=== PATIENT | female | born 1945 | race Hispanic/Latino ===

== ENCOUNTER → 2023-10-22 | Emergency (ER) | payer OTHER, BC ==
--- NOTE | 2023-10-22 11:25 | ER ---
Nurse's Notes [facility] Name: Olivia Curtis Age: 78 yrs Sex: Female : 1945 Arrival Date: 10/22/2023 Time: 10:23 Bed 4 Private MD: Diagnosis: Essential (primary) hypertension;Raynaud's syndrome without gangrene Presentation: 10/22 10:44 Chief complaint: Home DBP 89, left index finger turning white, and mild numbness of hb lips since iron infusion completed yesterday. Coronavirus screen: At this time, the client does not indicate any symptoms associated with coronavirus-19. Ebola Screen: No symptoms or risks identified at this time. Initial Sepsis Screen: Does the patient meet any 2 criteria? No. Patient's initial sepsis screen is negative. Does the patient have a suspected source of infection? No. Patient's initial sepsis screen is negative. Risk Assessment: Do you want to hurt yourself or someone else? Patient reports no desire to harm self or others. Onset of symptoms was October 21, 2023. 10:44 Method Of Arrival: Ambulatory hb 10:44 Acuity: BRYNN 3 hb Historical: - Allergies: 10:45 No Known Allergies; hb - Home Meds: 10:45 BuSpar Oral 10 mg [Active]; eszopiclone 1 mg oral tablet [Active]; duloxetine 60 mg hb oral capsule,delayed release (e.c.) [Active]; valsartan 320 mg oral tablet [Active]; aspirin 81 mg oral tablet,chewable [Active]; biotin 10,000 mcg oral capsule [Active]; Centrum oral [Active]; - PMHx: 10:45 Hypertension; Anxiety; Anemia; hb Screenin:50 [facility] ED Fall Risk Assessment (Adult) History of falling in the last 3 months, aa5 including since admission No falls in past 3 months (0 pts) Confusion or Disorientation No (0 pts) Intoxicated or Sedated No (0 pts) Impaired Gait No (0 pts) Mobility Assist Device Used No (0 pt) Altered Elimination No (0 pt) Score/Fall Risk Level 0 - 2 = Low Risk Oriented to surroundings, Maintained a safe environment, Educated pt \T\ family on fall prevention, incl call for assistance when getting out of bed. Abuse screen: Denies threats or abuse. Nutritional screening: No deficits noted. Tuberculosis screening: No symptoms or risk factors identified. Assessment: 10:50 General: Appears comfortable, Behavior is calm, cooperative. Pain: Denies pain. Neuro: aa5 Level of Consciousness is awake, alert, obeys commands, Oriented to person, place, time, situation. Cardiovascular: Heart tones S1 S2 present Rhythm is regular. Respiratory: Airway is patent Respiratory effort is even, unlabored, Respiratory pattern is regular, symmetrical. GI: No signs and/or symptoms were reported involving the gastrointestinal system. : No signs and/or symptoms were reported regarding the genitourinary system. EENT: No signs and/or symptoms were reported regarding the EENT system. Derm: Skin is pink, warm \T\ dry. reports left index finger turning white out in the cold weather. Musculoskeletal: Range of motion: intact in all extremities. 11:42 Reassessment: Patient is alert, oriented x 3, equal unlabored respirations, skin aa5 warm/dry/pink. Vital Signs: 10:44 BP 172 / 74; Pulse 72; Resp 16; Temp 97.7(TE); Pulse Ox 100% on R/A; Pain 0/10; hb 11:16 BP 159 / 65; Pulse 62; Resp 18 S; Pulse Ox 100% on R/A; aa5 11:40 BP 158 / 71; Pulse 67; Resp 17 S; Pulse Ox 99% on R/A; aa5 10:44 Pain Scale: Adult hb ED Course: 10:27 Patient arrived in ED. mg5 10:29 Keya Baker PA-C is PHCP. sb4 10:29 Eric Spear MD is Attending Physician. sb4 10:45 Triage completed. hb 10:53 Leta Sosa, SHALOM is Primary Nurse. aa5 11:40 No provider procedures requiring assistance completed. Patient did not have IV access aa5 during this emergency room visit. 11:50 Patient has correct armband on for positive identification. Bed in low position. Call aa5 light in reach. Side rails up X 1. Pulse ox on. NIBP on. Administered Medications: No medications were administered Medication: 11:20 VIS not applicable for this client. aa5 Outcome: 11:25 Discharge ordered by . sb4 11:42 Discharged to home ambulatory, with family, aa5 11:42 Condition: stable 11:42 Discharge instructions given to patient, Instructed on discharge instructions, follow up and referral plans. Demonstrated understanding of instructions, follow-up care, Pt instructed to keep blood pressure reading log and to follow-up with PCP. 11:43 Patient left the ED. aa5 Signatures: Leta Sosa RN RN aa5 Temla Esquivel RN RN hb Brown, Sophia, PADat PADat sb4 Hellen Pearson mg5
--- NOTE | 2023-10-22 11:25 | EDPHYS ---
Physician Documentation [facility] Name: Olivia Curtis Age: 78 yrs Sex: Female : 1945 Arrival Date: 10/22/2023 Time: 10:23 Bed 4 Private MD: ED Physician Eric Spear HPI: 10/22 11:29 This 78 yrs old Female presents to ER via Ambulatory with complaints of High sb4 Blood Pressure. 11:32 78-year-old female with past medical history of anxiety, hypertension, and anemia sb4 presents with concerns of elevated blood pressure, numbness in her lips, and discoloration of her index finger. She states that she had an iron infusion yesterday for her chronic anemia. Additionally, she states that she was started on 2 new medications for anxiety/insomnia. States that she checked her blood pressure this morning and her diastolic was 89, which is high for her and wanted to make sure all of these things were not related. She denies any chest pain, shortness of breath, nausea, vomiting, blurry vision, gait abnormality, weakness, aphasia. Historical: - Allergies: 10:45 No Known Allergies; hb - Home Meds: 10:45 BuSpar Oral 10 mg [Active]; eszopiclone 1 mg oral tablet [Active]; duloxetine 60 mg hb oral capsule,delayed release (e.c.) [Active]; valsartan 320 mg oral tablet [Active]; aspirin 81 mg oral tablet,chewable [Active]; biotin 10,000 mcg oral capsule [Active]; Centrum oral [Active]; - PMHx: 10:45 Hypertension; Anxiety; Anemia; hb ROS: 11:32 Constitutional: Negative for fever, chills, and weight loss, sb4 11:32 MS/extremity: Positive for 11:32 Skin: Positive for discoloration, 11:32 Neuro: Positive for numbness, 11:32 All other systems are negative, Exam: 11:32 Constitutional: This is a well developed, well nourished patient who is awake, alert, sb4 and in no acute distress. Head/Face: Normocephalic, atraumatic. Eyes: Extra-ocular motions intact. Periorbital areas with no swelling, redness, or edema. ENT: Mucous membranes moist. Cardiovascular: Regular rate and rhythm with a normal S1 and S2. Respiratory: Lungs have equal breath sounds bilaterally, clear to auscultation and percussion. No rales, rhonchi or wheezes noted. No increased work of breathing, no retractions or nasal flaring. Abdomen/GI: Soft, non-tender, no distension. MS/ Extremity: Pulses equal, no cyanosis. Neurovascular intact. Full, normal range of motion. Neuro: Awake and alert, GCS 15, oriented to person, place, time, and situation. Motor strength 5/5 in all extremities. Sensory grossly intact. 11:32 Skin: distal left index finger with raynaud's appearance . Vital Signs: 10:44 BP 172 / 74; Pulse 72; Resp 16; Temp 97.7(TE); Pulse Ox 100% on R/A; Pain 0/10; hb 11:16 BP 159 / 65; Pulse 62; Resp 18 S; Pulse Ox 100% on R/A; aa5 11:40 BP 158 / 71; Pulse 67; Resp 17 S; Pulse Ox 99% on R/A; aa5 10:44 Pain Scale: Adult hb MDM: 10:34 Patient medically screened. sb4 11:32 Differential diagnosis: hypertension, anxiety, raynauds. Data reviewed: vital signs, sb4 nurses notes, and as a result, I will discharge patient. Test considered but Not performed: EKG: patient declined. Labs: patient declined, has had blood work recently that was normal. CT: patient declined. Historians other than the Patient: Family Member: granddaughter. Care significantly affected by the following chronic conditions: Hypertension. Counseling: I had a detailed discussion with the patient and/or guardian regarding the historical points, exam findings, and any diagnostic results supporting the discharge/admit diagnosis, the presence of at least one elevated blood pressure reading (>120/80) during this emergency department visit, the need for outpatient follow up, for definitive care, to adjust BP medications. Refusal of service: The patient/guardian displays adequate decision making capability and despite a detailed discussion of alternatives, benefits, risks, and consequences refuses: all lab tests. ED course: BP improved with rest. discussed that BP is likely related to anxiety and she needs to see PCP to adjust medications. she is asymptomatic. recently had full negative cardiac workup. does not want any other workup done at this time. she is safe for dc home. strict return precautions given, she undertsands. Administered Medications: No medications were administered Disposition Summary: 10/22/23 11:25 Discharge Ordered Notes: Location: Home sb4 Problem: new sb4 Symptoms: have improved sb4 Condition: Stable sb4 Diagnosis - Essential (primary) hypertension sb4 - Raynaud's syndrome without gangrene sb4 Followup: sb4 - With: Emergency Department - When: As needed - Reason: Trouble breathing, Worsening of condition Discharge Instructions: - Discharge Summary Sheet sb4 - Hypertension, Adult sb4 - Raynaud's Phenomenon sb4 Forms: - Medication Reconciliation Form sb4 - Thank You Letter sb4 - Antibiotic Education sb4 - Prescription Opioid Use sb4 - Patient Portal Instructions sb4 - Leadership Thank You Letter sb4 Addendum: 10/24/2023 15:32 I was immediately available for consultation during this patient's visit. I did not e c2 personally see the patient or discuss the patient with the GRACIA. . Signatures: Telma Esquivel RN RN hb Brown, Sophia, PA-C PA-C sb4 Eric Spear MD MD ec2
[2023-10-22 14:28] VITALS: TEMP 97.7
[2023-10-22 14:42] VITALS: BP 158/71; O2SAT 99
== END ==
LOC: ER 10:23
DX: I10 Essential (primary) hypertension (principal); I73.00 Raynaud's syndrome without gangrene; R20.0 Anesthesia of skin; D64.9 Anemia, unspecified
CPT/HCPCS: 99283

== ENCOUNTER → 2023-12-07 | Emergency (ER) | payer OTHER, BC ==
[~2023-12-07] MED LIST: NA CHLORIDE 0.9% 1,000 ML ONE
[2023-12-07 20:47] LABS: Absolute Basophils 0.1 K/uL (0-0.5); Absolute Eosinophils 0.1 K/uL (0-0.5); Absolute Lymphocytes (CBC) 2.4 K/uL (0.7-4.9); Basophils % 0.5 % (0-1.3); Eosinophils % 0.8 % (0-4.4); Hematocrit 38.3 % (36.0-45.0); Lymphocytes % 24.9 % (15.3-44.8); MCV 82.3 fL (80-100); MPV 7.3 fL (7.6-11.3); Platelets 374 thou/uL (152-406); RBC Red Blood Cell Count 4.65 M/uL (3.86-4.86)
[2023-12-07 20:54] LABS: Specific Gravity 1.009 (1.005-1.030); Urine Bacteria <20 /HPF (<20); Urine Bilirubin NEGATIVE (Negative); Urine Blood Negative (Negative); Urine Clarity Turbid (Clear); Urine Color Light-Yellow (Yellow); Urine Glucose NEGATIVE (Negative); Urine Mucus Slight /HPF (None Seen); Urine Protein NEGATIVE (Negative); Urine RBC <5 /HPF (None Seen); Urine Urobilinogen Normal (Normal)
[2023-12-07 21:15] LABS: Albumin 2.5 g/dL (3.4-5.0); Albumin/Globulin Ratio 0.7 (1.1-1.8); Anion Gap 7.9 mEq/L (5.0-15.0); Bilirubin Total 0.5 mg/dL (0.2-1.0); Globulin 3.5 g/dL (2.3-3.5)
[2023-12-07 21:16] LABS: Anisocytosis 2+; Blood Morphology Comment NOTED (NOT SEEN); Platelet Estimate ADEQ; White Blood Cell Scan OK (OK)
[2023-12-07 21:21] LABS: Potassium 3.9 mEq/L (3.5-5.1)
--- NOTE | 2023-12-07 22:05 | RAD REPORT ---
EXAM DESCRIPTION: CT - Abdomen Pelvis W Contrast - 12/07/2023 9:49 pm CLINICAL HISTORY: Abdominal pain COMPARISON: none. TECHNIQUE: Computed axial tomography of the abdomen pelvis was obtained. 100 cc Isovue-300 was admin istered intravenously. Oral contrast was not requested which limits evaluation of bowel and appendix All CT scans are performed using dose optimization technique as appropriate and may include automated exposure control or mA/KV adjustment according to patient size. FINDINGS: Hepatic cysts. The largest contains a septation measuring 3.3 centimeters. Spleen, pancreas, and adrenals appear unremarkable. Tiny renal cysts There is no evidence of diverticulitis. Fluid within nondilated bowel. Hysterectomy Atherosclerosis. Calcification abdominal aorta results in an approximately 50% stenosis IMPRESSION: Fluid within nondilated bowel may indicate an enteritis Calcification abdominal aorta results in an approximately 50% stenosis
--- NOTE | 2023-12-07 22:11 | EDPHYS ---
Physician Documentation [facility] Name: Olivia Curtis Age: 78 yrs Sex: Female : 1945 Arrival Date: 12/07/2023 Time: 18:01 Bed 15 Private MD: ED Physician Chip De León HPI: 12/06 18:37 This 78 yrs old Female presents to ER via Unassigned with complaints of kb Weakness. 18:37 Pt reports she has celiac disease and has had diarrhea for 1.5 weeks. States she has no kb appetite and feels weak because of all of the diarrhea. States she has seen her GI and had stool tests completed but does not have the results yet. Denies fever, n/v. States she has mild abd discomfort. Historical: - Allergies: 18:40 No Known Allergies; tl4 - PMHx: 18:40 Anemia; Anxiety; Hypertension; tl4 - Immunization history:: Adult Immunizations unknown. - Social history:: Smoking status: Patient denies any tobacco usage or history of. ROS: 18:37 Constitutional: As per HPI kb Exam: 18:37 Constitutional: This is a well developed, well nourished patient who is awake, alert, kb and in no acute distress. Head/Face: Normocephalic, atraumatic. ENT: Moist Mucous membranes Cardiovascular: Regular rate Respiratory: Respirations even and unlabored. No increased work of breathing. Talking in full sentences Skin: Warm, dry with normal turgor. Normal color. MS/ Extremity: Pulses equal, no cyanosis. Neurovascular intact. Full, normal range of motion. Neuro: Awake and alert, GCS 15, oriented to person, place, time, and situation. Moves all extremities. Normal gait. 18:37 Abdomen/GI: Inspection: abdomen appears normal, Bowel sounds: normal, Palpation: soft, in all quadrants, mild abdominal tenderness, in all quadrants, Vital Signs: 18:36 BP 103 / 53; Pulse 102; Resp 18; Temp 98(O); Pulse Ox 100% on R/A; Weight 54.43 kg; tl4 Height 5 ft. 2 in. ; Pain 5/10; 20:00 BP 101 / 57; Pulse 80; Resp 16; Pulse Ox 100% ; Pain 0/10; pf1 21:00 BP 114 / 55; Pulse 76; Resp 16; Pulse Ox 100% ; Pain 0/10; pf1 22:00 BP 119 / 57; Pulse 79; Resp 16; Temp 98.1; Pulse Ox 98% on R/A; Pain 0/10; pf1 18:36 Body Mass Index 21.95 (54.43 kg, 157.48 cm) tl4 18:36 Pain Scale: Adult tl4 20:00 Pain Scale: Adult pf1 21:00 Pain Scale: Adult pf1 22:00 Pain Scale: Adult pf1 NIH Stroke Scale Scores: 19:53 NIHSS Score: 0 pf1 MDM: 18:36 Patient medically screened. kb 18:39 Data reviewed: vital signs, nurses notes. kb 22:09 Differential diagnosis: Nonspecific abd pain, gastritis, viral gastroenteritis, kb dehydration, abnormal electrolytes. Counseling: I had a detailed discussion with the patient and/or guardian regarding the historical points, exam findings, and any diagnostic results supporting the discharge/admit diagnosis, lab results, radiology results, the need for outpatient follow up, a family practitioner, to return to the emergency department if symptoms worsen or persist or if there are any questions or concerns that arise at home. 03 18:36 Order name: CBC with Diff; Complete Time: 21:20 kb 12/06 18:36 Order name: CMP; Complete Time: 21:28 kb 12/06 18:36 Order name: Lipase; Complete Time: 21:28 kb 12/06 18:36 Order name: Urinalysis w/ reflexes; Complete Time: 21:20 kb 12/06 21:16 Order name: CBC Smear Scan; Complete Time: 21:20 EDMS 12/06 18:36 Order name: CT Abd/Pelvis - IV Contrast Only; Complete Time: 22:09 kb 12/06 18:36 Order name: IV Saline Lock; Complete Time: 20:17 kb 12/06 18:36 Order name: Labs collected and sent; Complete Time: 20:17 kb Administered Medications: 20:30 Drug: NS 0.9% IV 1000 ml IV at 1 bolus Per protocol; 1000 mL bolus Route: IV; Rate: 1 pf1 bolus; Site: left antecubital; 21:00 Follow up: Response: Marked relief of symptoms; IV Status: Completed infusion; IV pf1 Intake: 1000ml Disposition Summary: 12/07/23 22:10 Discharge Ordered Notes: Location: Home kb Condition: Stable kb Diagnosis - Diarrhea, unspecified kb - Weakness kb Followup: kb - With: Emergency Department - When: As needed - Reason: Worsening of condition Followup: kb - With: Private Physician - When: 2 - 3 days - Reason: Recheck today's complaints, Continuance of care, Re-evaluation by your physician Discharge Instructions: - Discharge Summary Sheet kb - Diarrhea, Adult, [id number] kb - Weakness, [id number] kb Forms: - Medication Reconciliation Form kb - Thank You Letter kb - Antibiotic Education kb - Prescription Opioid Use kb - Patient Portal Instructions kb - Leadership Thank You Letter kb NIH Stroke Scale - NIH Stroke Score Date: 12/07/2023 Time: 19:53 Total Score = 0 10. Dysarthria (speech clarity - read or repeat words) 11. Extinction and Inattention (visual/tactile/auditory/spatial/personal) 1a. Level of Consciousness (LOC) - 0(Alert) 1b. Level of Consciousness (LOC) (Month \T\ Age) - 0(Both) 1c. LOC Commands (Open \T\ Closes Eyes/Three Dimensional Art Instructor) - 0(Both) 2. Best Gaze (Lateral Gaze Paresis) - 0(Normal) 3. Visual Field Loss - 0(No visual loss) 4. Facial Palsy - 0(Normal) 5a. Left Arm: Motor (10-second hold) - 0(No drift) 5b. Right Arm: Motor (10-second hold) - 0(No drift) 6a. Left Leg: Motor (5-second hold - always test supine) - 0(No drift) 6b. Right Leg: Motor (5-second hold - always test supine) - 0(No drift) 7. Limb Ataxia (finger/nose \T\ heel/mcclure - test with eyes open) - 0(Absent) 8. Sensory Loss (pinprick arms/legs/face) - 0(Normal) 9. Best Language: Aphasia (description/naming/reading) Initials: pf1 Addendum: 12/12/2023 08:26 Co-signature as Attending Physician, Chip De León MD I reviewed the patient's rn care provided by the Advanced Practice Provider and agree with the diagnosis and treatment plan. Signatures: Dispatcher [employer] EDChelsea Prasad, COTTON OPENER-C COTTON OPENER-Ckb Chip De León MD MD rn Finley, Pamala, RN RN pf1 Bismark Hoff, RN RN tl4
--- NOTE | 2023-12-07 22:11 | ER ---
Nurse's Notes [facility] Name: Olivia Curtis Age: 78 yrs Sex: Female : 1945 Arrival Date: 12/07/2023 Time: 18:01 Bed 15 Private MD: Diagnosis: Diarrhea, unspecified;Weakness Presentation: 12/06 18:36 Chief complaint: Patient states: Pt c/o ongoing diarrhea and upper abdominal pain x 10 tl4 days. Coronavirus screen: At this time, the client does not indicate any symptoms associated with coronavirus-19. Ebola Screen: No symptoms or risks identified at this time. Initial Sepsis Screen: Does the patient meet any 2 criteria? No. Patient's initial sepsis screen is negative. Does the patient have a suspected source of infection? No. Patient's initial sepsis screen is negative. Risk Assessment: Do you want to hurt yourself or someone else? Patient reports no desire to harm self or others. Onset of symptoms was November 28, 2023. 18:36 Method Of Arrival: Ambulatory tl4 18:36 Acuity: BRYNN 3 tl4 19:52 No acute neurological deficit is noted. pf1 Triage Assessment: 18:40 General: Appears in no apparent distress. Behavior is calm, cooperative. Pain: tl4 Complains of pain in abdomen. EENT: No deficits noted. No signs and/or symptoms were reported regarding the EENT system. Neuro: Reports fatigue. Cardiovascular: No deficits noted. Respiratory: No deficits noted. GI: Reports diarrhea. : No deficits noted. No signs and/or symptoms were reported regarding the genitourinary system. Derm: No deficits noted. No signs and/or symptoms reported regarding the dermatologic system. Musculoskeletal: No deficits noted. No signs and/or symptoms reported regarding the musculoskeletal system. Historical: - Allergies: 18:40 No Known Allergies; tl4 - PMHx: 18:40 Anemia; Anxiety; Hypertension; tl4 - Immunization history:: Adult Immunizations unknown. - Social history:: Smoking status: Patient denies any tobacco usage or history of. Screenin:55 [facility] ED Fall Risk Assessment (Adult) History of falling in the last 3 months, pf1 including since admission No falls in past 3 months (0 pts) Confusion or Disorientation No (0 pts) Intoxicated or Sedated No (0 pts) Impaired Gait No (0 pts) Mobility Assist Device Used No (0 pt) Altered Elimination No (0 pt) Score/Fall Risk Level 0 - 2 = Low Risk Oriented to surroundings, Maintained a safe environment, Educated pt \T\ family on fall prevention, incl call for assistance when getting out of bed, Assessed \T\ reinforced patient's understanding of fall precautions, Provided non-skid footwear, Hourly rounding (assess needs \T\ fall precautionary measures) done, Used ambulatory aids as needed (educated on \T\ assisted with), Used gait belt as appropriate. Abuse screen: Denies threats or abuse. Nutritional screening: No deficits noted. Tuberculosis screening: No symptoms or risk factors identified. Assessment: 19:53 General: Appears in no apparent distress. comfortable, well groomed, well developed, pf1 Behavior is calm, cooperative, appropriate for age, quiet. Pain: Denies pain. Neuro: Level of Consciousness is awake, alert, obeys commands, Oriented to person, place, time, situation, Reports weakness in generalized. Cardiovascular: Capillary refill < 3 seconds Patient's skin is warm and dry. Respiratory: No deficits noted. Airway is patent Respiratory effort is even, unlabored, Respiratory pattern is regular, symmetrical, Breath sounds are clear bilaterally. GI: Abdomen is flat, non-distended, Bowel sounds present X 4 quads. Reports diarrhea. : No deficits noted. No signs and/or symptoms were reported regarding the genitourinary system. EENT: No deficits noted. No signs and/or symptoms were reported regarding the EENT system. Derm: No deficits noted. No signs and/or symptoms reported regarding the dermatologic system. Musculoskeletal: No deficits noted. Circulation, motion, and sensation intact. Capillary refill < 3 seconds. 20:30 Reassessment: Patient appears in no apparent distress at this time. Patient and/or pf1 family updated on plan of care and expected duration. Pain level reassessed. Patient is alert, oriented x 3, equal unlabored respirations, skin warm/dry/pink. Patient states symptoms have improved. 21:30 Reassessment: Patient appears in no apparent distress at this time. Patient and/or pf1 family updated on plan of care and expected duration. Pain level reassessed. Patient is alert, oriented x 3, equal unlabored respirations, skin warm/dry/pink. Patient states feeling better. Patient states symptoms have improved. Vital Signs: 18:36 BP 103 / 53; Pulse 102; Resp 18; Temp 98(O); Pulse Ox 100% on R/A; Weight 54.43 kg; tl4 Height 5 ft. 2 in. ; Pain 5/10; 20:00 BP 101 / 57; Pulse 80; Resp 16; Pulse Ox 100% ; Pain 0/10; pf1 21:00 BP 114 / 55; Pulse 76; Resp 16; Pulse Ox 100% ; Pain 0/10; pf1 22:00 BP 119 / 57; Pulse 79; Resp 16; Temp 98.1; Pulse Ox 98% on R/A; Pain 0/10; pf1 18:36 Body Mass Index 21.95 (54.43 kg, 157.48 cm) tl4 18:36 Pain Scale: Adult tl4 20:00 Pain Scale: Adult pf1 21:00 Pain Scale: Adult pf1 22:00 Pain Scale: Adult pf1 NIH Stroke Scale Scores: 19:53 NIHSS Score: 0 pf1 ED Course: 18:05 Patient arrived in ED. mg5 18:36 Chelsea Miguel FNP-C is PHCP. kb 18:36 Chip De León MD is Attending Physician. kb 18:40 Triage completed. tl4 18:42 Arm band placed on left wrist. tl4 19:55 Patient has correct armband on for positive identification. Placed in gown. Bed in low pf1 position. Call light in reach. Side rails up X 1. 20:00 Lights dimmed. Warm blanket given. pf1 20:17 CBC with Diff Sent. pf1 20:17 CMP Sent. pf1 20:30 No provider procedures requiring assistance completed. Inserted saline lock: 22 gauge pf1 in left antecubital area, using aseptic technique. Blood collected. 20:47 CBC with Diff Sent. pf1 20:47 CMP Sent. pf1 20:47 Lipase Sent. pf1 20:47 Urinalysis w/ reflexes Sent. pf1 21:51 CT Abd/Pelvis - IV Contrast Only In Process Unspecified. EDMS 22:19 IV discontinued, intact, bleeding controlled, No redness/swelling at site. Pressure pf1 dressing applied. 22:20 Provided Education on: follow up. pf1 Administered Medications: 20:30 Drug: NS 0.9% IV 1000 ml IV at 1 bolus Per protocol; 1000 mL bolus Route: IV; Rate: 1 pf1 bolus; Site: left antecubital; 21:00 Follow up: Response: Marked relief of symptoms; IV Status: Completed infusion; IV pf1 Intake: 1000ml Medication: 22:20 VIS not applicable for this client. pf1 Intake: 21:00 IV: 1000ml; Total: 1000ml. pf1 Outcome: 22:10 Discharge ordered by . kb 22:20 Discharged to home ambulatory, pf1 22:20 Condition: improved 22:20 Discharge instructions given to patient, Instructed on discharge instructions, follow up and referral plans. Demonstrated understanding of instructions, follow-up care, 22:22 Patient left the ED. pf1 NIH Stroke Scale - NIH Stroke Score Date: 12/07/2023 Time: 19:53 Total Score = 0 10. Dysarthria (speech clarity - read or repeat words) 11. Extinction and Inattention (visual/tactile/auditory/spatial/personal) 1a. Level of Consciousness (LOC) - 0(Alert) 1b. Level of Consciousness (LOC) (Month \T\ Age) - 0(Both) 1c. LOC Commands (Open \T\ Closes Eyes/Postal Superintendent) - 0(Both) 2. Best Gaze (Lateral Gaze Paresis) - 0(Normal) 3. Visual Field Loss - 0(No visual loss) 4. Facial Palsy - 0(Normal) 5a. Left Arm: Motor (10-second hold) - 0(No drift) 5b. Right Arm: Motor (10-second hold) - 0(No drift) 6a. Left Leg: Motor (5-second hold - always test supine) - 0(No drift) 6b. Right Leg: Motor (5-second hold - always test supine) - 0(No drift) 7. Limb Ataxia (finger/nose \T\ heel/mcclure - test with eyes open) - 0(Absent) 8. Sensory Loss (pinprick arms/legs/face) - 0(Normal) 9. Best Language: Aphasia (description/naming/reading) Initials: pf1 Signatures: Dispatcher [employer] EDMS Chelsea Miguel, SARA CULPP-Tanya Cerda RN RN pf1 Hellen Pearson 5 Bismark Hoff RN RN tl4 Corrections: (The following items were deleted from the chart) 22:19 22:00 BP 119 / 57; Pulse 79bpm; Resp 16bpm; Pulse Ox 98% RA; Pain 0/10, Adult; pf1 pf1
[2023-12-07 22:43] VITALS: BP 119/57; TEMP 98.1; O2SAT 98
== END ==
LOC: ER 18:01
DX: R19.7 Diarrhea, unspecified (principal); R53.1 Weakness; I10 Essential (primary) hypertension
CPT/HCPCS: 85025; 81001; 36415; 83690; 80053; 74177; Q9967; J7030; 99285

== ENCOUNTER → 2023-12-12 | Emergency (ER) | payer OTHER, BC ==
[~2023-12-12] MED LIST changes: +LOPERAMIDE HCL 2 MG CAPSULE ONE
[2023-12-12 20:40] LABS: Absolute Eosinophils 0.1 K/uL (0-0.5); Absolute Lymphocytes (CBC) 1.3 K/uL (0.7-4.9); Basophils % 0.3 % (0-1.3); Eosinophils % 0.4 % (0-4.4); Hematocrit 39.9 % (36.0-45.0); Hemoglobin 13.5 g/dL (12.0-15.0); Lymphocytes % 10.9 % (15.3-44.8); MCV 82.6 fL (80-100); MPV 7.2 fL (7.6-11.3); Platelets 391 thou/uL (152-406); RBC Red Blood Cell Count 4.83 M/uL (3.86-4.86)
[2023-12-12 21:04] LABS: Albumin 2.8 g/dL (3.4-5.0); Albumin/Globulin Ratio 0.8 (1.1-1.8); Anion Gap 7.5 mEq/L (5.0-15.0); Bilirubin Total 0.3 mg/dL (0.2-1.0); Globulin 3.6 g/dL (2.3-3.5); Potassium 3.5 mEq/L (3.5-5.1); Protein, Total 6.4 g/dL (6.4-8.2)
[2023-12-12 22:09] LABS: Anisocytosis 2+; Blood Morphology Comment NOTED (NOT SEEN); Burr Cells 3+; Platelet Estimate ADEQ; White Blood Cell Scan OK (OK)
--- NOTE | 2023-12-12 22:11 | ER ---
Nurse's Notes [facility] Name: Olivia Curtis Age: 78 yrs Sex: Female : 1945 Arrival Date: 12/12/2023 Time: 17:53 Bed 18 Private MD: Diagnosis: Diarrhea, unspecified Presentation: 12/11 18:23 Coronavirus screen: Vaccine status: Patient reports receiving the 2nd dose of the covid kd3 vaccine. Ebola Screen: No symptoms or risks identified at this time. Initial Sepsis Screen: Does the patient meet any 2 criteria? No. Patient's initial sepsis screen is negative. Does the patient have a suspected source of infection? No. Patient's initial sepsis screen is negative. Risk Assessment: Do you want to hurt yourself or someone else? Patient reports no desire to harm self or others. Onset of symptoms was December 12, 2023. 18:23 Method Of Arrival: Ambulatory kd3 18:24 Chief complaint: Patient states: I came in last Tuesday for diarrhea and since then i kd3 have still been having diarrhea. I did follow up with GI but i haven't gotten results back. They just gave me IV fluids last time i was here. 18:24 Acuity: BRYNN 3 kd3 Triage Assessment: 18:24 General: Appears in no apparent distress. Behavior is calm, cooperative. Pain: kd3 Complains of pain in abdomen. GI: Reports diarrhea. Historical: - Allergies: 18:24 No Known Allergies; kd3 - Home Meds: 18:26 valsartan 320 mg Oral tablet [Active]; eszopiclone 1 mg Oral tablet [Active]; kd3 duloxetine 60 mg Oral capsule [Active]; Centrum oral [Active]; BuSpar Oral 10 mg [Active]; biotin 10 Oral capsule [Active]; aspirin 81 mg Oral tablet [Active]; - PMHx: 18:26 Anemia; Anxiety; Hypertension; kd3 - Immunization history:: Adult Immunizations up to date. - Social history:: Smoking status: Patient denies any tobacco usage or history of. Screenin:36 [facility] ED Fall Risk Assessment (Adult) History of falling in the last 3 months, kd4 including since admission No falls in past 3 months (0 pts) Confusion or Disorientation No (0 pts) Intoxicated or Sedated No (0 pts) Impaired Gait No (0 pts) Mobility Assist Device Used No (0 pt) Altered Elimination No (0 pt) Score/Fall Risk Level 0 - 2 = Low Risk Oriented to surroundings, Maintained a safe environment, Educated pt \T\ family on fall prevention, incl call for assistance when getting out of bed, Assessed \T\ reinforced patient's understanding of fall precautions. Abuse screen: Denies threats or abuse. Denies injuries from another. Nutritional screening: No deficits noted. Tuberculosis screening: No symptoms or risk factors identified. Assessment: 20:36 General: Appears in no apparent distress. comfortable, Behavior is calm, cooperative, kd4 appropriate for age. Pain: Denies pain. Neuro: Level of Consciousness is awake, alert, obeys commands, Oriented to person, place, time, situation. Cardiovascular: Denies chest pain, shortness of breath, Patient's skin is warm and dry. Respiratory: Airway is patent Respiratory effort is even, unlabored, Respiratory pattern is regular, symmetrical. GI: Abdomen is non-distended, Reports diarrhea. : No signs and/or symptoms were reported regarding the genitourinary system. EENT: No signs and/or symptoms were reported regarding the EENT system. Derm: No signs and/or symptoms reported regarding the dermatologic system. Skin is dry, Skin is pink, warm \T\ dry. Skin temperature is warm cool. Musculoskeletal: No signs and/or symptoms reported regarding the musculoskeletal system. Range of motion: intact in all extremities. Vital Signs: 18:23 BP 92 / 57; Pulse 115; Resp 16; Temp 97.8; Pulse Ox 99% ; Weight 54.43 kg; Height 5 ft. kd3 2 in. ; Pain 5/10; 18:27 BP 100 / 68; kd3 18:28 BP 104 / 60; kd3 19:00 BP 151 / 61; Pulse 87; Resp 16; Pulse Ox 91% on R/A; km8 20:14 BP 115 / 62; Pulse 91; km8 21:00 BP 118 / 50; Pulse 88; Resp 16; Pulse Ox 100% on R/A; km8 21:30 BP 115 / 50; Pulse 85; Resp 16; Pulse Ox 100% on R/A; km8 22:00 BP 122 / 60; Pulse 88; Resp 18; Pulse Ox 100% on R/A; km8 18:23 Body Mass Index 21.95 (54.43 kg, 157.48 cm) kd3 18:23 Pain Scale: Adult kd3 Cuddy Coma Score: 20:36 Eye Response: spontaneous(4). Motor Response: obeys commands(6). Verbal Response: kd4 oriented(5). Total: 15. ED Course: 17:54 Patient arrived in ED. ra3 17:55 Keya Baker PA-C is PHCP. sb4 17:56 Eric Spear MD is Attending Physician. sb4 18:24 Arm band placed on right wrist. kd3 18:26 Triage completed. kd3 20:36 Nabor Wellington, SHALOM is Primary Nurse. kd4 20:36 Patient has correct armband on for positive identification. Bed in low position. Call kd4 light in reach. Side rails up X2. Adult w/ patient. Pulse ox on. NIBP on. Warm blanket given. 20:36 Initial lab(s) drawn, by me, sent to lab. stool sample sent to lab. Inserted saline kd4 lock: 20 gauge in right antecubital area, using aseptic technique. Blood collected. Patient maintains SpO2 saturation greater than 95% on room air. 22:22 Provided Education on: Follow-up instructions. . cm10 22:22 No provider procedures requiring assistance completed. IV discontinued, intact, cm10 bleeding controlled, No redness/swelling at site. Pressure dressing applied. Administered Medications: 18:31 Drug: Loperamide PO 4 mg PO once Route: PO; kd3 20:55 Follow up: Response: No adverse reaction kd4 20:55 Drug: NS 0.9% IV 1000 ml IV at 1 bolus Per protocol; 1000 mL bolus Route: IV; Rate: 1 kd4 bolus; Site: right antecubital; 22:21 Follow up: Response: No adverse reaction; IV Status: Completed infusion; IV Intake: cm10 1000ml Medication: 20:36 VIS not applicable for this client. kd4 Intake: 22:21 IV: 1000ml; Total: 1000ml. cm10 Outcome: 22:10 Discharge ordered by . sb4 22:22 Discharged to home ambulatory, with significant other, cm10 22:22 Condition: good 22:22 Discharge instructions given to patient, family, Instructed on discharge instructions, follow up and referral plans. medication usage, Demonstrated understanding of instructions, follow-up care, medications, Prescriptions given X 1, 22:26 Patient left the ED. ha1 Signatures: Mary Carmen Gamino, RN RN kd3 Chelsey Harvey RN RN ha1 Keya Baker, PADat PADat sb4 Nory Schulte RN RN cm10 Janna Sandoval RN RN km8 Dulce Wolfe ra3 Nabor Wellington RN RN kd4
--- NOTE | 2023-12-12 22:11 | EDPHYS ---
Physician Documentation [facility] Name: Olivia Curtis Age: 78 yrs Sex: Female : 1945 Arrival Date: 12/12/2023 Time: 17:53 Bed 18 Private MD: ED Physician Eric Spear HPI: 12/11 18:29 This 78 yrs old Female presents to ER via Ambulatory with complaints of sb4 Diarrhea. 18:29 Patient reports diarrhea for 1 month now. She was seen here last week, had negative sb4 blood work and CT scan. She was hydrated and felt better. She states that her diarrhea has persisted. She is has seen GI who did stool test but she does not yet have the results. She is not taking any medications to help. She does endorse some mild abdominal cramping but no other systemic symptoms. Historical: - Allergies: 18:24 No Known Allergies; kd3 - Home Meds: 18:26 valsartan 320 mg Oral tablet [Active]; eszopiclone 1 mg Oral tablet [Active]; kd3 duloxetine 60 mg Oral capsule [Active]; Centrum oral [Active]; BuSpar Oral 10 mg [Active]; biotin 10 Oral capsule [Active]; aspirin 81 mg Oral tablet [Active]; - PMHx: 18:26 Anemia; Anxiety; Hypertension; kd3 - Immunization history:: Adult Immunizations up to date. - Social history:: Smoking status: Patient denies any tobacco usage or history of. ROS: 18:29 Constitutional: Negative for fever, chills, and weight loss, Eyes: Negative for injury, sb4 pain, redness, and discharge, 18:29 Abdomen/GI: Positive for diarrhea, abdominal cramps, 18:29 All other systems are negative, Exam: 18:29 Constitutional: This is a well developed, well nourished patient who is awake, alert, sb4 and in no acute distress. Head/Face: Normocephalic, atraumatic. Eyes: Extra-ocular motions intact. Periorbital areas with no swelling, redness, or edema. ENT: Mucous membranes moist. Cardiovascular: Regular rate and rhythm with a normal S1 and S2. Respiratory: Lungs have equal breath sounds bilaterally, clear to auscultation and percussion. No rales, rhonchi or wheezes noted. No increased work of breathing, no retractions or nasal flaring. Abdomen/GI: Soft, non-tender, no distension. Skin: Warm, dry with normal turgor. Normal color with no rashes, no lesions, and no evidence of cellulitis. MS/ Extremity: Pulses equal, no cyanosis. Neurovascular intact. Full, normal range of motion. Neuro: Awake and alert, GCS 15, oriented to person, place, time, and situation. Motor strength 5/5 in all extremities. Sensory grossly intact. Vital Signs: 18:23 BP 92 / 57; Pulse 115; Resp 16; Temp 97.8; Pulse Ox 99% ; Weight 54.43 kg; Height 5 ft. kd3 2 in. ; Pain 5/10; 18:27 BP 100 / 68; kd3 18:28 BP 104 / 60; kd3 19:00 BP 151 / 61; Pulse 87; Resp 16; Pulse Ox 91% on R/A; km8 20:14 BP 115 / 62; Pulse 91; km8 21:00 BP 118 / 50; Pulse 88; Resp 16; Pulse Ox 100% on R/A; km8 21:30 BP 115 / 50; Pulse 85; Resp 16; Pulse Ox 100% on R/A; km8 22:00 BP 122 / 60; Pulse 88; Resp 18; Pulse Ox 100% on R/A; km8 18:23 Body Mass Index 21.95 (54.43 kg, 157.48 cm) kd3 18:23 Pain Scale: Adult kd3 Arnold Coma Score: 20:36 Eye Response: spontaneous(4). Motor Response: obeys commands(6). Verbal Response: kd4 oriented(5). Total: 15. MDM: 18:29 Patient medically screened. sb4 22:09 Data reviewed: vital signs, nurses notes, lab test result(s), and as a result, I will sb4 discharge patient. Counseling: I had a detailed discussion with the patient and/or guardian regarding the historical points, exam findings, and any diagnostic results supporting the discharge/admit diagnosis, lab results, the need for outpatient follow up, a field recorder, to return to the emergency department if symptoms worsen or persist or if there are any questions or concerns that arise at home. 12/11 18:29 Order name: CBC with Diff; Complete Time: 22:11 sb4 12/11 18:29 Order name: CMP; Complete Time: 21:06 sb4 12/11 18:29 Order name: Lipase; Complete Time: 21:06 sb4 12/11 18:31 Order name: Fecal Leukocyte Stain sb4 12/11 18:31 Order name: Rotavirus Antigen sb4 12/11 18:31 Order name: Stool Culture sb4 12/11 21:35 Order name: CBC Smear Scan; Complete Time: 22:11 EDOH 12/11 18:29 Order name: IV Saline Lock; Complete Time: 20:54 sb4 12/11 18:29 Order name: Labs collected and sent; Complete Time: 20:54 sb4 Administered Medications: 18:31 Drug: Loperamide PO 4 mg PO once Route: PO; kd3 20:55 Follow up: Response: No adverse reaction kd4 20:55 Drug: NS 0.9% IV 1000 ml IV at 1 bolus Per protocol; 1000 mL bolus Route: IV; Rate: 1 kd4 bolus; Site: right antecubital; 22:21 Follow up: Response: No adverse reaction; IV Status: Completed infusion; IV Intake: cm10 1000ml Disposition Summary: 12/12/23 22:10 Discharge Ordered Notes: Location: Home sb4 Problem: new sb4 Symptoms: have improved sb4 Condition: Stable sb4 Diagnosis - Diarrhea, unspecified sb4 Followup: sb4 - With: Emergency Department - When: As needed - Reason: Trouble breathing, Worsening of condition Discharge Instructions: - Discharge Summary Sheet sb4 - Food Choices to Help Relieve Diarrhea, Adult sb4 - Diarrhea, Adult sb4 Forms: - Thank You Letter sb4 - Patient Portal Instructions sb4 - Leadership Thank You Letter sb4 Prescriptions: - Imodium A-D 2 mg Oral tablet - take 1 tablet ORAL route every 1 to 4 hours as needed for loose stool; sb4 administer after each loose stool until symptoms controlled; do not exceed 8 mg per 24 hrs; 30 tablet; Refills: 0, Product Selection Permitted Addendum: 12/14/2023 07:59 I was immediately available for consultation during this patient's visit. I did not e c2 personally see the patient or discuss the patient with the GRACIA. . Signatures: Dispatcher [employer] Mary Carmen Dominguez RN RN kd3 Keya Baker PA-C PA-C sb4 Eric Spear MD MD ec2 Nabor Wellington RN RN kd4 Nory Schulte RN cm10 Corrections: (The following items were deleted from the chart) 12/11 20:57 18:31 Ova and Parasites+ ordered. EDMS EDMS
[2023-12-12 22:57] VITALS: BP 122/60; TEMP 97.8; O2SAT 100
== END ==
LOC: ER 17:53
DX: R19.7 Diarrhea, unspecified (principal); I10 Essential (primary) hypertension; F41.9 Anxiety disorder, unspecified
CPT/HCPCS: 87045; 85025; 36415; 89055; 87046; 83690; 80053; 87425; 96360; 99285; J7030

== ENCOUNTER 2024-03-01 18:18 | Emergency (ER) | payer OTHER, BC ==
[2024-03-01] MEDS ORDERED: MECLIZINE HCL 12.5 MG TAB ONE (20:28)
--- NOTE | 2024-03-01 20:58 | RAD REPORT ---
EXAM DESCRIPTION: CT - [id number] - 03/01/2024 8:49 pm CLINICAL HISTORY: Headache, head and neck injury. Blurry vision. DIZZINESS COMPARISON: <Comparisons> TECHNIQUE: Axial 5 mm thick images of the head were obtained. Axial 2 mm thick images of the cervical spine were obtained with sagittal and coronal reconstruction images generated and reviewed. All CT scans are performed using dose optimization technique as appropriate and may include automated exposure control or mA/KV adjustment according to patient size. FINDINGS: CT HEAD WITHOUT CONTRAST: No acute hemorrhage, hydrocephalus or extra-axial collection is identified.Mild generalized brain atr ophy is present with mild periventricular and deep white matter chronic microvascular ischemic change s.No areas of brain edema or midline shift. Stent is present in the left intracranial carotid artery. The paranasal sinuses and mastoids are clear.The calvarium is intact. CT CERVICAL SPINE WITHOUT CONTRAST: No fracture or subluxation.Mild lower cervical degenerative changes.No prevertebral soft tissues swel ling is identified. Mild carotid atherosclerosis. Bilateral vertebral atherosclerosis. IMPRESSION: No acute intracranial or cervical spine findings.
--- NOTE | 2024-03-01 21:29 | RAD REPORT ---
EXAM DESCRIPTION: RAD - Chest Single View - 03/01/2024 9:21 pm CLINICAL HISTORY: CHEST PAIN Chest pain. COMPARISON: <Comparisons> FINDINGS: Portable technique limits examination quality. The lungs are grossly clear. The heart is normal in size. No displaced fractures. IMPRESSION: No acute intrathoracic process suspected.
--- NOTE | 2024-03-01 21:29 | EDPHYS ---
Physician Documentation [facility] Name: Olivia Curtis Age: 79 yrs Sex: Female : 1945 Arrival Date: 03/01/2024 Time: 18:18 Bed 17 Private MD: ED Physician Roel Puentes HPI: 03/01 20:10 This 79 yrs old Female presents to ER via Ambulatory with complaints of sp4 Headache, Neck Pain, >24Hrs Old, Dizziness. 21:26 79-year-old female with history of anemia anxiety hypertension and brain aneurysm sp4 presents with 6 weeks of feeling unwell overall associated with posterior headache, neck pain, dizziness, anxiety. Numbness tingling in the face. Patient states that possibly recently passed some illness.. Historical: - Allergies: 19:19 No Known Allergies; cm10 - PMHx: 19:19 Anemia; Anxiety; Hypertension; Aneurysm; cm10 - PSHx: 19:19 Cholecystectomy; Total abdominal hysterectomy; cm10 - Immunization history:: Adult Immunizations up to date. - Infectious Disease History:: Denies. - Social history:: Smoking status: Patient denies any tobacco usage or history of. - Family history:: not pertinent. ROS: 21:26 Constitutional: Negative for fever, chills, and weight loss, positive dizziness, sp4 positive anxiety, positive numbness tingling, positive palpitations, positive headache, positive neck pain. 21:26 All other systems are negative, Exam: 21:26 Constitutional: This is a well developed, well nourished patient who is awake, alert, sp4 and in no acute distress. Head/Face: Normocephalic, atraumatic. Eyes: Pupils equal round and reactive to light, extra-ocular motions intact. Lids and lashes normal. Conjunctiva and sclera are not injected. Cornea within normal limits. Periorbital areas with no swelling, redness, or edema. ENT: Nares patent. No nasal discharge, no septal abnormalities noted. Tympanic membranes are normal and external auditory canals are clear. Oropharynx with no redness, swelling, or masses, exudates, or evidence of obstruction, uvula midline. Mucous membranes moist. Neck: Trachea midline, no thyromegaly or masses palpated, and no cervical lymphadenopathy. Supple, full range of motion without nuchal rigidity, or vertebral point tenderness. Chest/axilla: Normal chest wall appearance and motion. Nontender with no deformity. No lesions are appreciated. Cardiovascular: Regular rate and rhythm with a normal S1 and S2. No gallops, murmurs, or rubs. Normal PMI, no JVD. No pulse deficits. Respiratory: Lungs have equal breath sounds bilaterally, clear to auscultation and percussion. No rales, rhonchi or wheezes noted. No increased work of breathing, no retractions or nasal flaring. Abdomen/GI: Soft, with normal bowel sounds. No distension or tympany. No guarding or rebound. No evidence of tenderness throughout. Back: No spinal tenderness. No costovertebral tenderness. Skin: Warm, dry with normal turgor. Normal color with no rashes, no lesions, and no evidence of cellulitis. MS/ Extremity: Pulses equal, no cyanosis. Neurovascular intact. Full, normal range of motion. Neuro: Awake and alert, GCS 15, oriented to person, place, time, and situation. Cranial nerves II-XII grossly intact. Motor strength 5/5 in all extremities. Sensory grossly intact. Psych: Awake, alert, with orientation to person, place and time. Behavior, mood, and affect are within normal limits Vital Signs: 19:16 BP 148 / 73; Pulse 77; Resp 18; Temp 98.9; Pulse Ox 100% on R/A; Weight 57.2 kg; Height cm10 5 ft. 2 in. ; Pain 5/10; 21:27 BP 144 / 87; Pulse 73; Resp 16; Pulse Ox 99% on R/A; kd3 19:16 Body Mass Index 23.06 (57.20 kg, 157.48 cm) cm10 19:16 Pain Scale: Adult cm10 NIH Stroke Scale Scores: 20:22 NIHSS Score: 0 sp4 Arnold Coma Score: 21:26 Eye Response: spontaneous(4). Motor Response: obeys commands(6). Verbal Response: sp4 oriented(5). Total: 15. 21:26 Eye Response: spontaneous(4). Motor Response: obeys commands(6). Verbal Response: sp4 oriented(5). Total: 15. MDM: 20:22 Patient medically screened. sp4 21:21 ED course: EXAM DESCRIPTION: CT - [id number] - 03/01/2024 8:49 pm CLINICAL HISTORY: sp4 Headache, head and neck injury. Blurry vision. DIZZINESS COMPARISON: TECHNIQUE: Axial 5 mm thick images of the head were obtained. Axial 2 mm thick images of the cervical spine were obtained with sagittal and coronal reconstruction images generated and reviewed. All CT scans are performed using dose optimization technique as appropriate and may include automated exposure control or mA/KV adjustment according to patient size. FINDINGS: CT HEAD WITHOUT CONTRAST: No acute hemorrhage, hydrocephalus or extra-axial collection is identified.Mild generalized brain atrophy is present with mild periventricular and deep white matter chronic microvascular ischemic changes.No areas of brain edema or midline shift. Stent is present in the left intracranial carotid artery. The paranasal sinuses and mastoids are clear.The calvarium is intact. CT CERVICAL SPINE WITHOUT CONTRAST: No fracture or subluxation.Mild lower cervical degenerative changes.No prevertebral soft tissues swelling is identified. Mild carotid atherosclerosis. Bilateral vertebral atherosclerosis. IMPRESSION: No acute intracranial or cervical spine findings. . 21:26 Differential diagnosis: cluster headache, migraine, uremia, vasomotor headache. Data sp4 reviewed: vital signs, nurses notes, radiologic studies, CT scan. ED course: At this time patient states she is feeling better she wishes to do products at home provide of the lab work results. Based on examination there is no emergencies, patient is stable for discharge home with p.o. as needed meclizine.. 22:35 ED course: Laboratory workup was found to be unremarkable.. 03/01 20:22 Order name: Basic Metabolic Panel; Complete Time: : 4 03/01 20:22 Order name: CBC with Diff; Complete Time: : 4 03/01 20:22 Order name: LFT's; Complete Time: : 4 03/01 20:22 Order name: Magnesium; Complete Time: : 4 03/01 20:22 Order name: NT PRO-BNP; Complete Time: : 4 03/01 20:22 Order name: PT-INR; Complete Time: : 4 03/01 20:22 Order name: Troponin HS; Complete Time: : 4 03/01 20:22 Order name: XRAY Chest (1 view); Complete Time: :33 sp4 03/01 20:22 Order name: CT Head C Spine; Complete Time: 22:33 sp4 03/01 20:22 Order name: Cardiac monitoring sp4 03/01 20:22 Order name: EKG - Nurse/Tech sp4 03/01 20:22 Order name: Labs collected and sent; Complete Time: 21:19 sp4 03/01 20:22 Order name: O2 Per Protocol sp4 03/01 20:22 Order name: O2 Sat Monitoring sp4 Administered Medications: 20:32 Drug: Meclizine PO 25 mg PO once Route: PO; kd3 Disposition Summary: 03/01/24 21:29 Discharge Ordered Notes: Location: Home sp4 Problem: new sp4 Symptoms: have improved sp4 Condition: Stable sp4 Diagnosis - Dizziness and giddiness sp4 - Acute grief reaction, stress and anxiety, palpitations, tension headaches sp4 Followup: sp4 - With: Private Physician - When: 7 - 10 days - Reason: Recheck today's complaints Discharge Instructions: - Discharge Summary Sheet sp4 - Dizziness, [id number] sp4 Forms: - Patient Portal Instructions sp4 Prescriptions: - Meclizine 25 mg Oral tablet - take 1 tablet ORAL route every 12 hours As needed PRN dizziness; 30 tablet; sp4 Refills: 0, Product Selection Permitted NIH Stroke Scale - NIH Stroke Score Date: 03/01/2024 Time: 20:22 Total Score = 0 10. Dysarthria (speech clarity - read or repeat words) - 0(Normal) 11. Extinction and Inattention (visual/tactile/auditory/spatial/personal) - 0(No abnormality) 1a. Level of Consciousness (LOC) - 0(Alert) 1b. Level of Consciousness (LOC) (Month \T\ Age) - 0(Both) 1c. LOC Commands (Open \T\ Closes Eyes/House Officer) - 0(Both) 2. Best Gaze (Lateral Gaze Paresis) - 0(Normal) 3. Visual Field Loss - 0(No visual loss) 4. Facial Palsy - 0(Normal) 5a. Left Arm: Motor (10-second hold) - 0(No drift) 5b. Right Arm: Motor (10-second hold) - 0(No drift) 6a. Left Leg: Motor (5-second hold - always test supine) - 0(No drift) 6b. Right Leg: Motor (5-second hold - always test supine) - 0(No drift) 7. Limb Ataxia (finger/nose \T\ heel/mcclure - test with eyes open) - 0(Absent) 8. Sensory Loss (pinprick arms/legs/face) - 0(Normal) 9. Best Language: Aphasia (description/naming/reading) - 0(No aphasia) Initials: sp4 Signatures: Dispatcher [employer] EDMS Mary Carmen Gamino, RN RN kd3 Roel Puentes MD MD sp4 Nory Schulte RN RN cm10 Corrections: (The following items were deleted from the chart) 20:22 20:22 BASIC METABOLIC PANEL+C.LAB.BRZ ordered. EDMS EDMS 20:22 20:22 CBC+H.LAB.BRZ ordered. EDMS EDMS 20:22 20:22 HEPATIC FUNCTION+C.LAB.BRZ ordered. EDMS EDMS 20:22 20:22 MAGNESIUM+C.LAB.BRZ ordered. EDMS EDMS 20:22 20:22 PROBNP+C.LAB.BRZ ordered. EDMS EDMS 20:22 20:22 PROTIME (+INR)+COAG.LAB.BRZ ordered. EDMS EDMS 20:22 20:22 Troponin High Sensitivity+C.LAB.BRZ ordered. EDMS EDMS 20:22 20:22 Chest Single View+RAD.RAD.BRZ ordered. EDMS EDMS 20:22 20:22 Head C Spine MPR Wo Con+CT.RAD.BRZ ordered. EDMS EDMS
--- NOTE | 2024-03-01 21:29 | ER ---
Nurse's Notes [facility] Name: Olivia Curtis Age: 79 yrs Sex: Female : 1945 Arrival Date: 03/01/2024 Time: 18:18 Bed 17 Private MD: Diagnosis: Dizziness and giddiness;Acute grief reaction, stress and anxiety, palpitations, tension headaches Presentation: 03/01 19:16 Chief complaint: Patient states: Intermittent head, neck and left side of body pain for cm10 the last 3 weeks. PT also reports that she has had intermittent dizziness and blurred vision. Coronavirus screen: Client denies travel out of the [place] in the last 14 days. At this time, the client does not indicate any symptoms associated with coronavirus-19. Ebola Screen: Patient denies travel to an Ebola-affected area in the 21 days before illness onset. No symptoms or risks identified at this time. Initial Sepsis Screen: Does the patient meet any 2 criteria? No. Patient's initial sepsis screen is negative. Does the patient have a suspected source of infection? No. Patient's initial sepsis screen is negative. Risk Assessment: Do you want to hurt yourself or someone else? Patient reports no desire to harm self or others. Onset of symptoms was March 01, 2024. 19:16 Method Of Arrival: Ambulatory 10 19:16 Acuity: BRYNN 3 cm10 Triage Assessment: 19:19 General: Appears in no apparent distress. comfortable, Behavior is calm, cooperative. cm10 Neuro: No deficits noted. Level of Consciousness is awake, alert, obeys commands, Oriented to person, place, time, situation, Appropriate for age Moves all extremities. Gait is steady, Speech is normal, Facial symmetry appears normal. Respiratory: No deficits noted. Airway is patent Respiratory effort is even, unlabored, Respiratory pattern is regular, symmetrical. Musculoskeletal: No deficits noted. Range of motion: intact in all extremities. 21:26 Headache History: Denies prior headaches. Pain: Pain began. Pain: Pain at worst was 8 kd3 out of 10 on a pain scale. Also complains of nausea. Historical: - Allergies: 19:19 No Known Allergies; cm10 - PMHx: 19:19 Anemia; Anxiety; Hypertension; Aneurysm; cm10 - PSHx: 19:19 Cholecystectomy; Total abdominal hysterectomy; cm10 - Immunization history:: Adult Immunizations up to date. - Infectious Disease History:: Denies. - Social history:: Smoking status: Patient denies any tobacco usage or history of. - Family history:: not pertinent. Screenin:26 [facility] ED Fall Risk Assessment (Adult) History of falling in the last 3 months, kd3 including since admission No falls in past 3 months (0 pts) Confusion or Disorientation No (0 pts) Intoxicated or Sedated No (0 pts) Impaired Gait No (0 pts) Mobility Assist Device Used No (0 pt) Altered Elimination No (0 pt) Score/Fall Risk Level 0 - 2 = Low Risk Oriented to surroundings. Abuse screen: Denies threats or abuse. Denies injuries from another. Nutritional screening: No deficits noted. Tuberculosis screening: No symptoms or risk factors identified. Assessment: 21:25 General: Appears in no apparent distress. Behavior is calm, cooperative. Pain: Denies kd3 pain. Neuro: Level of Consciousness is awake, alert, obeys commands, Oriented to person, place, time, situation. Cardiovascular: Patient's skin is warm and dry. Respiratory: Airway is patent Trachea midline Respiratory effort is even, unlabored, Respiratory pattern is regular, symmetrical. Vital Signs: 19:16 BP 148 / 73; Pulse 77; Resp 18; Temp 98.9; Pulse Ox 100% on R/A; Weight 57.2 kg; Height cm10 5 ft. 2 in. ; Pain 5/10; 21:27 BP 144 / 87; Pulse 73; Resp 16; Pulse Ox 99% on R/A; kd3 19:16 Body Mass Index 23.06 (57.20 kg, 157.48 cm) cm10 19:16 Pain Scale: Adult cm10 Arnold Coma Score: 21:26 Eye Response: spontaneous(4). Motor Response: obeys commands(6). Verbal Response: sp4 oriented(5). Total: 15. 21:26 Eye Response: spontaneous(4). Motor Response: obeys commands(6). Verbal Response: sp4 oriented(5). Total: 15. NIH Stroke Scale Scores: 20:22 NIHSS Score: 0 sp4 ED Course: 18:20 Patient arrived in ED. im 19:19 Triage completed. cm10 19:20 Arm band placed on Patient placed in waiting room. cm10 20:10 Potepalov, Roel, MD is Attending Physician. sp4 20:32 Mary Carmen Gamino, SHALOM is Primary Nurse. kd3 20:49 CT Head C Spine In Process Unspecified. EDMS 21:19 Basic Metabolic Panel Sent. rv1 21:19 CBC with Diff Sent. rv1 21:19 LFT's Sent. rv1 21:19 Magnesium Sent. rv1 21:19 NT PRO-BNP Sent. rv1 21:19 PT-INR Sent. rv1 21:19 Troponin HS Sent. rv1 21:19 Missed attempt(s): 20 gauge in left antecubital area. Bleeding controlled, band aid rv1 applied, catheter tip intact. 21:23 XRAY Chest (1 view) In Process Unspecified. EDMS 21:24 Troponin HS Sent. kd3 21:24 PT-INR Sent. kd3 21:24 NT PRO-BNP Sent. kd3 21:24 Magnesium Sent. kd3 21:24 LFT's Sent. kd3 21:24 CBC with Diff Sent. kd3 21:24 Basic Metabolic Panel Sent. kd3 21:26 No provider procedures requiring assistance completed. Patient did not have IV access kd3 during this emergency room visit. 21:27 Patient has correct armband on for positive identification. Provided Education on: kd3 Leaving without Blood work results. . Administered Medications: 20:32 Drug: Meclizine PO 25 mg PO once Route: PO; kd3 Medication: 21:26 VIS not applicable for this client. kd3 Outcome: 21:26 Discharged to home ambulatory, kd3 21:26 Condition: stable 21:26 Discharge instructions given to patient, friend, Instructed on discharge instructions, follow up and referral plans. Demonstrated understanding of instructions, follow-up care, 21:29 Discharge ordered by MD. sp4 21:35 Patient left the ED. kd3 NIH Stroke Scale - NIH Stroke Score Date: 03/01/2024 Time: 20:22 Total Score = 0 10. Dysarthria (speech clarity - read or repeat words) - 0(Normal) 11. Extinction and Inattention (visual/tactile/auditory/spatial/personal) - 0(No abnormality) 1a. Level of Consciousness (LOC) - 0(Alert) 1b. Level of Consciousness (LOC) (Month \T\ Age) - 0(Both) 1c. LOC Commands (Open \T\ Closes Eyes/Sterile Processing Technologist) - 0(Both) 2. Best Gaze (Lateral Gaze Paresis) - 0(Normal) 3. Visual Field Loss - 0(No visual loss) 4. Facial Palsy - 0(Normal) 5a. Left Arm: Motor (10-second hold) - 0(No drift) 5b. Right Arm: Motor (10-second hold) - 0(No drift) 6a. Left Leg: Motor (5-second hold - always test supine) - 0(No drift) 6b. Right Leg: Motor (5-second hold - always test supine) - 0(No drift) 7. Limb Ataxia (finger/nose \T\ heel/mcclure - test with eyes open) - 0(Absent) 8. Sensory Loss (pinprick arms/legs/face) - 0(Normal) 9. Best Language: Aphasia (description/naming/reading) - 0(No aphasia) Initials: sp4 Signatures: Dispatcher [employer] EDMary Carmen Herbert, RN RN kd3 Etelvina Manzanares rv1 Roel Puentes MD MD sp4 Karlie Beckett Clarissa, RN RN cm10
[2024-03-01 21:35] LABS: Absolute Basophils 0.1 K/uL (0-0.5); Absolute Eosinophils 0.1 K/uL (0-0.5); Absolute Lymphocytes (CBC) 1.9 K/uL (0.7-4.9); Absolute Monocytes 0.6 K/uL (0.1-1.3); Basophils % 0.8 % (0-1.3); Eosinophils % 2.1 % (0-4.4); Hematocrit 37.9 % (36.0-45.0); Hemoglobin 12.8 g/dL (12.0-15.0); Lymphocytes % 27.9 % (15.3-44.8); MCH 29.8 pg (27.0-35.0); MCHC 33.8 g/dL (32.0-36.0); MCV 88.3 fL (80-100); Monocytes % 9.6 % (3.3-12.3); Neutrophils % 59.6 % (41.7-73.7); Nucleated Red Blood Cells % 0.3 % (0-0); Platelets 358 thou/uL (152-406); Red Cell Distribution Width 14.1 % (12.1-15.2)
[2024-03-01 21:37] LABS: PT Prothrombin Time 11.7 SECONDS (9.5-12.5); Protime INR 1.07
[2024-03-01 21:53] LABS: ALT/SGPT 33 U/L (13-56); AST/SGOT 21 U/L (15-37); Albumin 3.5 g/dL (3.4-5.0); Albumin/Globulin Ratio 0.8 (1.1-1.8); Alkaline Phosphatase 109 U/L (45-117); Anion Gap 3.3 mEq/L (5.0-15.0); BUN Blood Urea Nitrogen 11 mg/dL (7-18); Bicarbonate 34 mEq/L (21-32); Bilirubin Direct < 0.2 mg/dL (0-0.2); Bilirubin Indirect, Calculated 0.3 mg/dL (0.2-0.8); Bilirubin Total 0.5 mg/dL (0.2-1.0); Globulin 4.2 g/dL (2.3-3.5); Glomerular Filtration Rate 90 ml/min (=/>90); Glucose Level 88 mg/dL (74-106); Magnesium 2.3 mg/dL (1.6-2.4); NT PRO-BNP 30 pg/mL (<450); Potassium 4.3 mEq/L (3.5-5.1); Protein, Total 7.7 g/dL (6.4-8.2); Sodium Level 136 mEq/L (136-145); Troponin High Sensitivity 7.9 pg/mL (<58.9)
[2024-03-01 22:44] VITALS: BP 144/87; TEMP 98.9; O2SAT 99
== END 2024-03-01 21:35 | disposition home or self-care (01) ==
LOC: ER 18:18
DX: F43.21 Adjustment disorder with depressed mood (principal); F43.9 Reaction to severe stress, unspecified; G44.209 Tension-type headache, unspecified, not intractable; R00.2 Palpitations; I10 Essential (primary) hypertension
CPT/HCPCS: 85025; 80048; 36415; 83735; 85610; 80076; 84484; 83880; 70450; 72125; 71045; 99283; J8597

== ENCOUNTER 2025-01-02 11:29 | Emergency (ER) | payer OTHER, BC ==
[2025-01-02] MEDS ORDERED: ACETAMINOPHEN 325 MG TABLET ONE (12:14)
[2025-01-02] MEDS ORDERED: NA CHLORIDE 0.9% 250 ML ONE (12:14)
--- NOTE | 2025-01-02 12:43 | RAD REPORT ---
EXAM: Chest Single View HISTORY: 79 years Female AMS, cough COMPARISON: 03/01/2024 FINDINGS: LUNGS/PLEURA: The lungs are clear. No pleural effusions or pneumothorax. No pulmonary edema. CARDIAC/MEDIASTINUM: The cardiac silhouette is within normal limits. UPPER ABDOMEN: No significant abnormality. BONES: No acute abnormality. LINES/TUBES/OTHER: N/A IMPRESSION: No evidence of acute cardiopulmonary disease.
[2025-01-02 12:58] LABS: PT Prothrombin Time 12.9 SECONDS (10-13.0); PTT, Activated Partial Thromb 31.5 SECONDS (27.2-37.4); Protime INR 1.14
--- NOTE | 2025-01-02 13:00 | RAD REPORT ---
EXAMINATION: Head Brain Wo Cont CLINICAL INDICATION: Female, 79 years old.AMS TECHNIQUE: Axial CT images from the skull base to the vertex without intravenous contrast. Coronal an d sagittal reformatted images were created from the data set. One or more of the following dose reduction techniques were used: Automated exposure control, adjustment of the mA and/or kV according to patient size, and/or iterative reconstruction. Unless otherwise specified, incidental findings do not require dedicated imaging follow-up. [id number]. COMPARISON: 03/01/2024 FINDINGS: INTRACRANIAL: No acute intracranial hemorrhage. No hydrocephalus. No mass effect or midline shift. Mo derate chronic small vessel ischemic changes.Moderate cerebral atrophy. VASCULATURE: No visualized abnormalities in the arteries or dural venous sinuses. Left ICA stent SCALP/SKULL: No calvarial fracture identified. No acute soft tissue abnormality. SINUSES: The visualized paranasal sinuses are mostly clear. No significant mastoid fluid. IMPRESSION: No acute intracranial abnormality. Chronic small vessel ischemic changes.
[2025-01-02 13:03] LABS: Influenza A Ag Negative; Influenza B Ag Negative
[2025-01-02 13:04] LABS: SARS-CoV-2 Antigen Rapid Res Positive (Negative)
[2025-01-02 13:05] LABS: Albumin 3.4 g/dL (3.4-5.0); Albumin/Globulin Ratio 0.8 (1.1-1.8); Anion Gap 7.3 mEq/L (5.0-15.0); Bilirubin Total 0.5 mg/dL (0.2-1.0); Globulin 4.2 g/dL (2.3-3.5); Potassium 3.3 mEq/L (3.5-5.1); Protein, Total 7.6 g/dL (6.4-8.2)
[2025-01-02 13:10] LABS: Absolute Lymphocytes (CBC) 0.9 K/uL (0.7-4.9); Absolute Monocytes 0.9 K/uL (0.1-1.3); Absolute Neutrophil 5.1 K/uL (1.8-8.0); Basophils % 0.3 % (0-1.3); Eosinophils % 0.1 % (0-4.4); Hematocrit 43.9 % (36.0-45.0); Lymphocytes % 13.2 % (15.3-44.8); MCH 28.7 pg (27.0-35.0); MCHC 34.2 g/dL (32.0-36.0); MCV 83.9 fL (80-100); MPV 8.1 fL (7.6-11.3); Monocytes % 13.3 % (3.3-12.3); Neutrophils % 73.1 % (41.7-73.7); Platelets 307 thou/uL (152-406); RBC Red Blood Cell Count 5.23 M/uL (3.86-4.86); Red Cell Distribution Width 15.4 % (12.1-15.2)
[2025-01-02 13:56] LABS: Specific Gravity 1.016 (1.005-1.030); Sqamous Epithelial None Seen /HPF (None Seen); Urine Bacteria <20 /HPF (<20); Urine Bilirubin NEGATIVE (Negative); Urine Blood 2+ (Negative); Urine Clarity Turbid (Clear); Urine Color Light-Yellow (Yellow); Urine Culture Reflex Order NOT NEEDED; Urine Glucose NEGATIVE (Negative); Urine Ketones NEGATIVE (Negative); Urine Microscopic Reflex YN ORDER UMIC; Urine Mucus Slight /HPF (None Seen); Urine Nitrite NEGATIVE (Negative); Urine Protein NEGATIVE (Negative); Urine RBC 21-50 /HPF (None Seen); Urine Urobilinogen Normal (Normal); Urine WBC <5 /HPF (<5); Urine pH 6.5 (5.0-7.0)
--- NOTE | 2025-01-02 14:11 | ER ---
Nurse's Notes [facility] Name: Olivia Curtis Age: 79 yrs Sex: Female : 1945 Arrival Date: 01/02/2025 Time: 11:29 Bed DIS2 Private MD: Stephania Bates Diagnosis: SARS-associated coronavirus as the cause of diseases classified elsewhere;Fever, unspecified;Dehydration Presentation: 01/02 11:56 Chief complaint: Patient states: Confusion, urinary incontinence, lethargic, no ll1 appetite for 3-4 days. Coronavirus screen: Client denies travel out of the [place] in the last 14 days. At this time, the client does not indicate any symptoms associated with coronavirus-19. Ebola Screen: Patient denies travel to an Ebola-affected area in the 21 days before illness onset. Initial Sepsis Screen: Does the patient meet any 2 criteria? No. Patient's initial sepsis screen is negative. Does the patient have a suspected source of infection? No. Patient's initial sepsis screen is negative. Risk Assessment: Do you want to hurt yourself or someone else? Patient reports no desire to harm self or others. Onset of symptoms was December 30, 2024. 11:56 Method Of Arrival: Ambulatory ll1 11:56 Acuity: BRYNN 2 ll1 Triage Assessment: 11:55 General: Appears in no apparent distress. Behavior is calm, cooperative, appropriate ll1 for age. Pain: Denies pain. Neuro: Reports daughter states confusion off/on. : Reports incontinence. Historical: - Allergies: 11:55 No Known Allergies; ll1 - PMHx: 11:55 Anemia; Aneurysm; Anxiety; Hypertension; Cerebrovascular accident; ll1 - PSHx: 11:55 Cholecystectomy; Total abdominal hysterectomy; ll1 - Immunization history:: Adult Immunizations up to date. - Infectious Disease History:: Denies. - Social history:: Smoking status: Patient/guardian denies using tobacco, Stopped _ months ago 1. - Family history:: not pertinent. - Hospitalizations: : Patient was recently seen at. Screenin:19 [facility] ED Fall Risk Assessment (Adult) History of falling in the last 3 months, kc6 including since admission No falls in past 3 months (0 pts) Confusion or Disorientation Yes (5 pts) Intoxicated or Sedated No (0 pts) Impaired Gait No (0 pts) Mobility Assist Device Used No (0 pt) Altered Elimination Yes (1 pt) Score/Fall Risk Level 3 or more points = High Risk Oriented to surroundings, Maintained a safe environment, Educated pt \T\ family on fall prevention, incl call for assistance when getting out of bed. Abuse screen: Denies threats or abuse. Denies injuries from another. Nutritional screening: No deficits noted. Tuberculosis screening: No symptoms or risk factors identified. Assessment: 14:33 Reassessment: Patient appears in no apparent distress at this time. Patient and/or cm10 family updated on plan of care and expected duration. Pain level reassessed. Patient is alert, oriented x 3, equal unlabored respirations, skin warm/dry/pink. Vital Signs: 11:56 BP 121 / 72; Pulse 110; Resp 17; Temp 101.7(O); Pulse Ox 97% ; Weight 54.43 kg; Height ll1 5 ft. 3 in. ; Pain 0/10; 11:56 Body Mass Index 21.26 (54.43 kg, 160.02 cm) ll1 11:56 Pain Scale: Adult ll1 ED Course: 11:30 Patient arrived in ED. as 11:33 Chip De León MD is Attending Physician. rn 11:33 Stephania Bates is Private Physician. as 11:55 Arm band placed on Patient placed in an exam room, on a stretcher. ll1 11:59 Triage completed. ll1 12:21 COVID-19 Ag + Flu A+B Ag Sent. ld1 12:40 Chest Single View XRAY In Process Unspecified. EDMS 12:49 CT Head Brain wo Cont In Process Unspecified. EDMS 13:04 Notified ED physician of a critical lab result(s). covid +. ll1 13:19 Patient has correct armband on for positive identification. Placed in gown. Bed in low kc6 position. Call light in reach. Side rails up X2. Adult w/ patient. engine monitor on. Pulse ox on. NIBP on. Door closed. Noise minimized. Lights dimmed. Warm blanket given. Pillow given. Verbal reassurance given. Assisted to bathroom. 13:19 Patient maintains SpO2 saturation greater than 95% on room air. kc6 13:40 Farnaz Monet, RN is Primary Nurse. ld1 14:35 Provided Education on: Follow-up instructions. cm10 14:35 No provider procedures requiring assistance completed. IV discontinued, intact, cm10 bleeding controlled, No redness/swelling at site. Pressure dressing applied. Administered Medications: 12:20 Drug: Acetaminophen PO 650 mg PO once Route: PO; ld1 14:35 Follow up: Response: No adverse reaction cm10 13:39 Drug: NS 0.9% IV 250 ml IV at bolus once; to be given as a bolus over 30 minutes Route: ld1 IV; Rate: bolus; Site: right antecubital; 14:34 Follow up: IV Status: Completed infusion; IV Intake: 250ml cm10 Medication: 14:35 VIS not applicable for this client. cm10 Intake: 14:34 IV: 250ml; Total: 250ml. cm10 Outcome: 14:11 Discharge ordered by . rn 14:34 Discharged to home ambulatory, with family, cm10 14:34 Condition: good 14:34 Discharge instructions given to patient, Instructed on discharge instructions, follow up and referral plans. medication usage, Demonstrated understanding of instructions, follow-up care, 15:22 Patient left the ED. cm10 Signatures: Dispatcher [employer] Amberly Barrios Roman, MD MD rn Lewis, Lynsay, RN RN [email or web address] Farnaz Monet RN RN [email or web address] Yudi Plunkett, SHALOM RN kc6 Nory Schulte RN RN cm10
--- NOTE | 2025-01-02 14:11 | EDPHYS ---
Physician Documentation [facility] Name: Olivia Curtis Age: 79 yrs Sex: Female : 1945 Arrival Date: 01/02/2025 Time: 11:29 Bed DIS2 Private MD: Stephania Bates ED Physician Chip De León HPI: 01/02 12:21 This 79 yrs old Female presents to ER via Ambulatory with complaints of rn Altered Mental Status, Urinary Incontinence. 12:21 The patient presents with confusion. Onset: The symptoms/episode began/occurred 1 rn week(s) ago. Possible causes: unknown. The patient has not experienced similar symptoms in the past. Family reports altered mental status for 1 week. Had hemorrhagic stroke 2 months ago. Overall has regained function of her right side which was the deficit 2 months ago. Family has noticed altered mental status with confusion for the last week. Also reports change in urinary habits. No fever or chills. No vomiting. No chest or abdominal pain. No back pain.. Historical: - Allergies: 11:55 No Known Allergies; ll1 - PMHx: 11:55 Anemia; Aneurysm; Anxiety; Hypertension; Cerebrovascular accident; ll1 - PSHx: 11:55 Cholecystectomy; Total abdominal hysterectomy; ll1 - Immunization history:: Adult Immunizations up to date. - Infectious Disease History:: Denies. - Social history:: Smoking status: Patient/guardian denies using tobacco, Stopped _ months ago 1. - Family history:: not pertinent. - Hospitalizations: : Patient was recently seen at. ROS: 12:21 Constitutional: Negative for fever, chills, and weight loss, Cardiovascular: Negative rn for chest pain, palpitations, and edema, Respiratory: Negative for shortness of breath, cough, wheezing, and pleuritic chest pain, Abdomen/GI: Negative for abdominal pain, nausea, vomiting, diarrhea, and constipation, Back: Negative for injury and pain, : Positive for increased urinary frequency MS/Extremity: Negative for injury and deformity, Skin: Negative for injury, rash, and discoloration, Neuro: Negative for focal weakness or numbness. No seizure. No headache. Positive for generalized malaise and altered mental status Exam: 12:21 Constitutional: This is a well developed, well nourished patient who is awake, alert, rn and in no acute distress. ENT: Dry mucous membranes Cardiovascular: Tachycardic, regular. No pulse deficits. Respiratory: No increased work of breathing, no retractions or nasal flaring. Abdomen/GI: Soft, non-tender MS/ Extremity: Pulses equal, no cyanosis. Neuro: Awake and alert, GCS 15, oriented to person, place, not time. Cranial nerves II-XII grossly intact. Motor strength 5/5 in all extremities. Sensory grossly intact. Cerebellar exam normal. 13:33 ECG was reviewed by the Attending Physician. rn Vital Signs: 11:56 BP 121 / 72; Pulse 110; Resp 17; Temp 101.7(O); Pulse Ox 97% ; Weight 54.43 kg; Height ll1 5 ft. 3 in. ; Pain 0/10; 11:56 Body Mass Index 21.26 (54.43 kg, 160.02 cm) ll1 11:56 Pain Scale: Adult ll1 MDM: 11:33 Medical Screening Exam initiated rn 14:09 Differential Diagnosis: CVA, electrolyte abnormality, pneumonia, UTI, volume depletion, rn viral syndrome, COVID, Flu. Data reviewed: vital signs, nurses notes, lab test result(s), radiologic studies, CT scan, plain films, and as a result, I will discharge patient. Counseling: I had a detailed discussion with the patient and/or guardian regarding the historical points, exam findings, and any diagnostic results supporting the discharge/admit diagnosis, lab results, radiology results, the need for outpatient follow up, to return to the emergency department if symptoms worsen or persist or if there are any questions or concerns that arise at home. Special discussion: I discussed with the patient/guardian in detail that at this point there is no indication for admission to the hospital. It is understood, however, that if the symptoms persist or worsen the patient needs to return immediately for re-evaluation. ED course: COVID positive, no oxygen requirement, negative chest x-ray, CT head negative. Urine negative. Viral syndrome causing mild dehydration and mild altered mental status. No indication for emergent admission at this time. Patient other than slight cough is grossly asymptomatic otherwise. No indication for antivirals at this time. Return precautions given and understood. I have personally reviewed all of the results, including but not limited to blood tests and imaging deemed necessary to safely discharge this patient at this time. All results given to and printed out for patient. I personally went over all the results with the patient and answered all questions. Patient will follow-up with PCP and or specialist as discussed. Return precautions given and understood.. 01/02 11:33 Order name: Urinalysis w/ reflexes; Complete Time: 14:04 rn 01/02 12:01 Order name: Blood Culture Adult (2) rn 01/02 12:01 Order name: CBC with Diff; Complete Time: 13:11 rn 01/02 12:01 Order name: CMP; Complete Time: 13:11 rn 01/02 12:01 Order name: Lactate w/ 2H reflex if indic.; Complete Time: 14:04 rn 01/02 12:01 Order name: Protime (+inr); Complete Time: 13:03 rn 01/02 12:01 Order name: Ptt, Activated; Complete Time: 13:03 rn 01/02 12:02 Order name: COVID-19 Ag + Flu A+B Ag; Complete Time: 13:11 rn 01/02 12:01 Order name: Chest Single View XRAY; Complete Time: 13:03 rn 01/02 12:02 Order name: CT Head Brain wo Cont; Complete Time: 13:03 rn 01/02 12:01 Order name: EKG; Complete Time: 12:02 rn 01/02 12:01 Order name: Accucheck; Complete Time: 12:21 rn 01/02 12:01 Order name: Cardiac monitoring; Complete Time: 12:21 rn 01/02 12:01 Order name: EKG - Nurse/Tech; Complete Time: 13:14 rn 01/02 12:01 Order name: IV Saline Lock - Large Bore; Complete Time: 12:44 rn 01/02 12:01 Order name: Labs collected and sent; Complete Time: 12:44 rn 01/02 12:01 Order name: O2 Per Protocol; Complete Time: 12:21 rn 01/02 12:02 Order name: O2 Sat Monitoring; Complete Time: 12:21 rn 01/02 12:02 Order name: Vital Signs; Complete Time: 12:21 rn EC:33 Rate is 95 beats/min. Rhythm is regular. QRS [place] is Normal. HI interval is normal. QRS rn interval is normal. QT interval is normal. No Q waves. T waves are Normal. No ST changes noted. Clinical impression: Normal ECG. Interpreted by me. Reviewed by me. Administered Medications: 12:20 Drug: Acetaminophen PO 650 mg PO once Route: PO; ld1 14:35 Follow up: Response: No adverse reaction cm10 13:39 Drug: NS 0.9% IV 250 ml IV at bolus once; to be given as a bolus over 30 minutes Route: ld1 IV; Rate: bolus; Site: right antecubital; 14:34 Follow up: IV Status: Completed infusion; IV Intake: 250ml cm10 Disposition Summary: 01/02/25 14:11 Discharge Ordered Notes: Location: Home rn Problem: new rn Symptoms: have improved rn Condition: Stable rn Diagnosis - SARS-associated coronavirus as the cause of diseases classified elsewhere rn - Fever, unspecified rn - Dehydration rn Followup: rn - With: Private Physician - When: As needed - Reason: Recheck today's complaints, Re-evaluation by your physician Discharge Instructions: - Discharge Summary Sheet rn - Dehydration, Adult rn - COVID-19 rn - 10 Things You Can Do to Manage Your COVID-19 Symptoms at Home - [facility] (04/17/2021) rn - Viral Illness, Adult rn Forms: - Medication Reconciliation Form rn - Antibiotic journeyman electrician pv installer - Prescription Opioid Use rn - Patient Portal Instructions rn - Leadership Thank You Letter rn Signatures: Dispatcher [employer] EDMS Chip De León MD MD rn Lewis, Lynsay RN RN ll1 Farnaz Monet RN RN ld1 Yudi Plunkett RN RN [email or web address] Nory Schulte RN cm10 Corrections: (The following items were deleted from the chart) 12:24 12:21 Constitutional: This is a well developed, well nourished patient who is awake, rn alert, and in no acute distress. ENT: Dry mucous membranes Cardiovascular: Tachycardic, regular. No pulse deficits. Respiratory: No increased work of breathing, no retractions or nasal flaring. Abdomen/GI: Soft, non-tender MS/ Extremity: Pulses equal, no cyanosis. Neuro: Awake and alert, GCS 15, oriented to person, place, not time. Cranial nerves II-XII grossly intact. Motor strength 5/5 in all extremities. Sensory grossly intact. Cerebellar exam normal. Normal gait. rn
[2025-01-02 15:27] VITALS: BP 121/72; TEMP 101.7; O2SAT 97
--- NOTE | 2025-01-03 10:41 | EKG ---
Test Date: 2025-01-02 Test Time: 13:08:06 Movie Operator: AM MEASUREMENT RESULTS: Intervals: Rate: 95 [place]: 116 QRSD: 82 QT: 352 QTc: 442 [place]: P: 47 [place]: 116 QRS: 40 T: 48 INTERPRETIVE STATEMENTS: Normal sinus rhythm Normal ECG No previous ECG available for comparison Electronically Signed On 01-03-25 10:40:32 CDT by Esequiel Cornelius
== END 2025-01-02 15:22 | disposition home or self-care (01) ==
LOC: ER 11:29
DX: U07.1 COVID-19 (principal); E86.0 Dehydration; Z86.73 Personal history of transient ischemic attack (TIA), and cerebral infarction without residual deficits; I10 Essential (primary) hypertension
CPT/HCPCS: 93005; 87040 ×2; 85025; 81001; 36415; 85610; 83605; 85730; 80053; 70450; 71045; 96360; 99285; 87428; J7050

== ENCOUNTER 2025-01-03 07:02 | Inpatient (IN) | payer OTHER, BC ==
--- NOTE | 2025-01-03 08:09 | RAD REPORT ---
EXAMINATION: ONE VIEW CHEST XR CLINICAL INDICATION: fever, cough TECHNIQUE: Frontal chest projection is submitted. Examination is limited by patient positioning and t echnique. COMPARISON: 01/02/2025 FINDINGS: The lungs are well inflated and clear. The heart is normal in size. No displaced fractures identified . IMPRESSION: No acute intrathoracic abnormalities.
--- NOTE | 2025-01-03 08:20 | RAD REPORT ---
EXAM: CT brain without contrast HISTORY: fall, head injury COMPARISON: None TECHNIQUE: Multiple contiguous axial images were obtained and a CT of the brain without contrast. Sag ittal and coronal reformats were performed. One or more of the following dose reduction techniques were used: Automated exposure control, adjust ment of the mA and/or kV according to patient size, and/or iterative reconstruction. FINDINGS: No evidence of hydrocephalus, intracranial hemorrhage, or extra-axial fluid collection. Moderate brain atrophy with moderate periventricular and deep white matter chronic microvascular isc hemic changes present. Left carotid siphon stent. No evidence of midline shift or areas of brain edema. The calvarium is intact. The visualized paranasal sinuses and mastoid air cells are essentially clear . IMPRESSION: No evidence of acute intracranial abnormality. EXAM: CT of the cervical spine without contrast HISTORY: Neck pain, injury fall, head injury TECHNIQUE: Multiple contiguous axial images were obtained in a CT of the cervical spine without contr ast. Sagittal and coronal reformats were performed. FINDINGS: The vertebral bodies demonstrate normal height and alignment. No evidence of acute fracture or subluxation.. Mild lower cervical degenerative changes. No prevertebral soft tissue swelling is seen. Carotid atherosclerosis bilaterally. The posterior facets are well aligned. Normal alignment of the skull base with the cervical spine is seen. The lung apices are unremarkable. IMPRESSION: No evidence of acute osseous abnormality of the cervical spine.
[2025-01-03 08:23] LABS: Absolute Basophils 0.1 K/uL (0-0.5); Absolute Lymphocytes (CBC) 0.9 K/uL (0.7-4.9); Absolute Monocytes 0.8 K/uL (0.1-1.3); Absolute Neutrophil 5.2 K/uL (1.8-8.0); Basophils % 0.7 % (0-1.3); Hematocrit 38.1 % (36.0-45.0); Hemoglobin 12.9 g/dL (12.0-15.0); Lymphocytes % 13.1 % (15.3-44.8); MCH 28.4 pg (27.0-35.0); MCHC 33.8 g/dL (32.0-36.0); MPV 7.7 fL (7.6-11.3); Monocytes % 11.5 % (3.3-12.3); Neutrophils % 74.7 % (41.7-73.7); Platelets 264 thou/uL (152-406); RBC Red Blood Cell Count 4.53 M/uL (3.86-4.86); Red Cell Distribution Width 15.3 % (12.1-15.2)
[2025-01-03 08:26] LABS: PTT, Activated Partial Thromb 28.8 SECONDS (27.2-37.4); Protime INR 1.15
[2025-01-03 08:33] LABS: Albumin 2.8 g/dL (3.4-5.0); Albumin/Globulin Ratio 0.8 (1.1-1.8); Anion Gap 8.1 mEq/L (5.0-15.0); Bilirubin Total 0.4 mg/dL (0.2-1.0); Globulin 3.4 g/dL (2.3-3.5); Potassium 3.1 mEq/L (3.5-5.1); Protein, Total 6.2 g/dL (6.4-8.2)
[2025-01-03 08:36] LABS: Influenza A Ag Negative; Influenza B Ag Negative
[2025-01-03 08:37] LABS: SARS-CoV-2 Antigen Rapid Res Positive (Negative)
[2025-01-03 08:39] LABS: Specific Gravity 1.018 (1.005-1.030); Sqamous Epithelial <5 /HPF (None Seen); Urine Bacteria None Seen /HPF (<20); Urine Bilirubin NEGATIVE (Negative); Urine Blood 2+ (Negative); Urine Clarity Clear (Clear); Urine Color Light-Yellow (Yellow); Urine Culture Reflex Order NOT NEEDED; Urine Glucose NEGATIVE (Negative); Urine Ketones TRACE (Negative); Urine Microscopic Reflex YN ORDER UMIC; Urine Mucus Slight /HPF (None Seen); Urine Nitrite NEGATIVE (Negative); Urine Protein NEGATIVE (Negative); Urine RBC 21-50 /HPF (None Seen); Urine Urobilinogen Normal (Normal); Urine WBC <5 /HPF (<5)
--- NOTE | 2025-01-03 08:43 | ER ---
Nurse's Notes [facility] Name: Olivia Curtis Age: 79 yrs Sex: Female : 1945 Arrival Date: 01/03/2025 Time: 07:02 Bed 2 Private MD: Diagnosis: SARS-associated coronavirus as the cause of diseases classified elsewhere;Syncope;Muscle weakness (generalized) Presentation: 01/03 07:12 Chief complaint: EMS states: FEVER AND COUGH x2 DAYS. 1 MONTH S/P HEMORRHAGIC CVA, ER bp Y/D FOR AMS. Coronavirus screen: At this time, the client does not indicate any symptoms associated with coronavirus-19. Ebola Screen: No symptoms or risks identified at this time. Initial Sepsis Screen: Does the patient meet any 2 criteria? Temp <36.0*C (96.8*F)) or > 38.3*C (100.9*F). HR > 90 bpm. Yes If YES to both, name of provider notified: Chip De León MD Risk Assessment: Do you want to hurt yourself or someone else? Patient reports no desire to harm self or others. Onset of symptoms is unknown. Care prior to arrival: Medication(s) given: Tylenol, 1000 mg, IV initiated. 20 GA, in the left antecubital area, Glucose check: 118. 07:12 Method Of Arrival: EMS: [facility] bp 07:12 Acuity: BRYNN 2 bp 07:15 Note CODE SEPSIS CALLED. bp Triage Assessment: 07:14 General: Appears in no apparent distress. ill, Behavior is cooperative, drowsy. Pain: bp Denies pain. EENT: No deficits noted. Neuro: No deficits noted. Cardiovascular: Rhythm is sinus tachycardia. Respiratory: Breath sounds are coarse. GI: No signs and/or symptoms were reported involving the gastrointestinal system. : No signs and/or symptoms were reported regarding the genitourinary system. Derm: No deficits noted. Musculoskeletal: No deficits noted. Historical: - Allergies: 07:14 No Known Allergies; bp - PMHx: 07:14 Anemia; Aneurysm; Anxiety; Cerebrovascular accident; Hypertension; bp - PSHx: 07:14 Cholecystectomy; Total abdominal hysterectomy; bp - Immunization history:: Adult Immunizations up to date. - Infectious Disease History:: Denies. - Social history:: Smoking status: Patient denies any tobacco usage or history of. - Family history:: not pertinent. - Hospitalizations: : No recent hospitalization is reported. Screenin:16 [facility] ED Fall Risk Assessment (Adult) History of falling in the last 3 months, bp including since admission No falls in past 3 months (0 pts) Confusion or Disorientation No (0 pts) Intoxicated or Sedated No (0 pts) Impaired Gait Yes (1 pt) Mobility Assist Device Used Yes (1 pt) Altered Elimination No (0 pt) Score/Fall Risk Level 3 or more points = High Risk Oriented to surroundings, Maintained a safe environment. Abuse screen: Denies threats or abuse. Denies injuries from another. Nutritional screening: No deficits noted. Tuberculosis screening: No symptoms or risk factors identified. Assessment: 07:15 General: Appears in no apparent distress. ill, Behavior is cooperative, drowsy. bp 08:00 Reassessment: Pt to CT at this time VIA stretcher. ss Vital Signs: 07:12 Pulse 100; Resp 20; Temp 101.7; bp 07:24 BP 118 / 101; Pulse 92; Resp 15; Pulse Ox 100% ; bp ED Course: 07:12 Patient arrived in ED. bp 07:13 Chip De León MD is Attending Physician. rn 07:14 Triage completed. bp 07:14 Arm band placed on. bp 07:16 Patient has correct armband on for positive identification. bp 07:16 Maintain EMS IV. Dressing intact. Good blood return noted. Site clean \T\ dry. Gauge \T\ bp site: 20 LAC. Flushed with 10 mL NS. 07:17 Abebe Luna, RN is Primary Nurse. bp 07:39 Chest Single View XRAY In Process Unspecified. EDMS 07:55 Initial lab(s) drawn, by ga, sent to lab. First set of blood cultures drawn Second set kb4 of blood cultures drawn by me, COVID swab sent to lab. Strep swab sent to lab. 08:02 Head C Spine Mpr Wo Con In Process Unspecified. EDMS 08:05 Inserted saline lock: 20 gauge in right wrist, using aseptic technique. Blood kb4 collected. Flushed with 10 mL NS. 08:06 EKG done, by ED staff, reviewed by Chip De León MD. kb4 08:06 COVID-19 Ag + Flu A+B Ag Sent. kb4 08:42 Serrato, Mohammad, MD is Hospitalizing Provider. rn 11:41 No provider procedures requiring assistance completed. Patient admitted, IV remains in bp place. 15:18 Provided Education on: na. jb4 Administered Medications: No medications were administered Medication: 15:18 VIS not applicable for this client. jb4 Outcome: 08:43 Decision to Hospitalize by Provider. rn 11:42 Admitted to ER Hold. Please see [facility] for further documentation. bp 11:42 Condition: stable 11:42 Instructed on the need for admit, 15:47 Patient left the ED. Signatures: Dispatcher [employer] EDMS Chip De León MD MD rn Blanchard, Shelby, RN RN Josiah Napier RN RN jb4 Abebe Luna RN RN Beronica Gaspar kb4
--- NOTE | 2025-01-03 08:43 | EDPHYS ---
Physician Documentation [facility] Name: Olivia Curtis Age: 79 yrs Sex: Female : 1945 Arrival Date: 01/03/2025 Time: 07:02 Bed 2 Private MD: ED Physician Chip De León HPI: 01/03 07:36 This 79 yrs old Female presents to ER via EMS with complaints of Fever, Cough. rn 07:36 EMS reports patient seen yesterday, diagnosed with COVID, possible syncopal episode at rn home, found down in bedroom with facial injury and trauma. Still with fever and cough but cough sounds worse, reports sore throat and generalized weakness that has worsened as well.. Given Tylenol by EMS prior to arrival.. Historical: - Allergies: 07:14 No Known Allergies; bp - PMHx: 07:14 Anemia; Aneurysm; Anxiety; Cerebrovascular accident; Hypertension; bp - PSHx: 07:14 Cholecystectomy; Total abdominal hysterectomy; bp - Immunization history:: Adult Immunizations up to date. - Infectious Disease History:: Denies. - Social history:: Smoking status: Patient denies any tobacco usage or history of. - Family history:: not pertinent. - Hospitalizations: : No recent hospitalization is reported. ROS: 07:36 Constitutional: Positive for fever and chills Eyes: Negative for injury, pain, redness, rn and discharge, ENT: Positive sore throat Cardiovascular: Negative for chest pain, palpitations, and edema, Respiratory: Positive for cough, negative for shortness of breath Abdomen/GI: Negative for abdominal pain, nausea, vomiting, diarrhea, and constipation, Back: Negative for injury and pain, MS/Extremity: Negative for injury and deformity, Neuro: Positive for headache and generalized weakness Exam: 07:36 Constitutional: This is a well developed, well nourished patient who is awake, alert rn Head/Face: Right forehead hematoma, no depression or laceration Neck: No midline cervical tenderness Cardiovascular: Regular rate and rhythm. No pulse deficits. Respiratory: Mild tachypnea, crackles right lung Abdomen/GI: Soft, nontender Back: No spinal tenderness MS/ Extremity: Pulses equal, no cyanosis. Neurovascular intact. Full, normal range of motion. Equal circumference. Full range of motion of all 4 extremities without pain Neuro: Awake and alert, GCS 15, oriented to person and situation, not time Vital Signs: 07:12 Pulse 100; Resp 20; Temp 101.7; bp 07:24 BP 118 / 101; Pulse 92; Resp 15; Pulse Ox 100% ; bp MDM: 07:13 Medical Screening Exam initiated rn 08:42 Differential diagnosis: viral Infection, bacterial infection, URI, pneumonia. Data rn reviewed: vital signs, nurses notes, lab test result(s), EKG, radiologic studies, CT scan, plain films, and as a result, I will admit patient. Consideration of Admission/Observation Patient was admitted/placed on observation. Escalation of care including admission/observation considered. Counseling: I had a detailed discussion with the patient and/or guardian regarding the historical points, exam findings, and any diagnostic results supporting the discharge/admit diagnosis, lab results, radiology results, the need for further work-up and treatment in the hospital. ED course: No acute traumatic findings on workup. Chest x-ray still negative for pneumonia. COVID-positive. Appears much weaker and worse than yesterday. Lung sounds worse as well. Will admit to hospitalist service for further care.. 01/03 07:14 Order name: Blood Culture Adult (2) rn 01/03 07:14 Order name: CBC with Diff; Complete Time: 08:40 rn 01/03 07:14 Order name: CMP; Complete Time: 08:40 rn 01/03 07:14 Order name: Lactate w/ 2H reflex if indic.; Complete Time: 08:40 rn 01/03 07:14 Order name: Protime (+inr); Complete Time: 08:40 rn 01/03 07:14 Order name: Ptt, Activated; Complete Time: 08:40 rn 01/03 07:14 Order name: Urinalysis w/ reflexes; Complete Time: 08:40 rn 01/03 07:14 Order name: COVID-19 Ag + Flu A+B Ag; Complete Time: 08:40 rn 01/03 09:20 Order name: Urinalysis w/ reflexes EDMS 01/03 09:20 Order name: Basic Metabolic Panel EDMS 01/03 09:20 Order name: Basic Metabolic Panel EDMS 01/03 09:20 Order name: CBC with Automated Diff EDMS 01/03 09:20 Order name: CBC with Automated Diff EDMS 01/03 09:20 Order name: Magnesium EDMS 01/03 09:20 Order name: Magnesium EDMS 01/03 09:20 Order name: NT PRO-BNP EDMS 01/03 09:20 Order name: NT PRO-BNP EDMS 01/03 09:20 Order name: Phosphorus EDMS 01/03 09:20 Order name: Phosphorus EDMS 01/03 09:20 Order name: Troponin High Sensitivity EDMS 01/03 09:20 Order name: Troponin High Sensitivity EDMS 01/03 09:20 Order name: Troponin High Sensitivity EDMS 01/03 09:20 Order name: Troponin High Sensitivity EDMS 01/03 07:14 Order name: Chest Single View XRAY; Complete Time: 08:40 rn 01/03 08:02 Order name: Head C Spine Mpr Wo Con; Complete Time: 08:40 EDMS 01/03 09:20 Order name: Physical Therapy Consult EDMS 01/03 07:14 Order name: Accucheck; Complete Time: 08:40 rn 01/03 07:14 Order name: Cardiac monitoring; Complete Time: 07:36 rn 01/03 07:14 Order name: EKG - Nurse/Tech; Complete Time: 07:36 rn 01/03 07:14 Order name: IV Saline Lock - Large Bore; Complete Time: 07:23 rn 01/03 07:14 Order name: Labs collected and sent; Complete Time: 08:06 rn 01/03 07:14 Order name: O2 Per Protocol; Complete Time: 07:36 rn 01/03 07:14 Order name: O2 Sat Monitoring; Complete Time: 07:36 rn 01/03 07:14 Order name: Vital Signs; Complete Time: 07:24 rn Administered Medications: No medications were administered Disposition Summary: 01/03/25 08:43 Hospitalization Ordered Notes: Hospitalization Status: Inpatient Admission rn Provider: Marycruz Serrato rn Condition: Stable rn Problem: new rn Symptoms: have worsened rn Bed/Room Type: Standard rn Location: Telemetry/MedSurg (Inpatient)(01/03/25 14:49) bc6 Room Assignment: 204(01/03/25 14:49) bc6 Diagnosis - SARS-associated coronavirus as the cause of diseases classified elsewhere rn - Syncope rn - Muscle weakness (generalized) rn Forms: - Medication Reconciliation Form rn - SBAR form rn - Leadership Thank You Letter rn Signatures: Dispatcher [facility] Chip De León MD MD rn Abebe Luna, RN RN bp BrandiisauroLubna bc6 Corrections: (The following items were deleted from the chart) 07:14 07:14 BLOOD CULTURE*+BA.LAB.BRZ ordered. EDMS EDMS 07:14 07:14 CBC+H.LAB.BRZ ordered. EDMS EDMS 07:14 07:14 COMPREHENSIVE METABOLIC PANEL+C.LAB.BRZ ordered. EDMS EDMS 07:14 07:14 LACTATE+C.LAB.BRZ ordered. EDMS EDMS 07:14 07:14 PROTIME (+INR)+COAG.LAB.BRZ ordered. EDMS EDMS 07:14 07:14 PTT, ACTIVATED+COAG.LAB.BRZ ordered. EDMS EDMS 07:14 07:14 Urinalysis+U.LAB.BRZ ordered. EDMS EDMS 07:14 07:14 COVID-19 Ag + Flu A+B Ag+I.LAB.BRZ ordered. EDMS EDMS 07:14 07:14 Chest Single View+RAD.RAD.BRZ ordered. EDMS EDMS 07:31 07:31 Head Brain Wo Cont+CT.RAD.BRZ ordered. EDMS EDMS 07:38 07:36 Constitutional: This is a well developed, well nourished patient who is awake, rn alert Head/Face: Right forehead hematoma, no depression or laceration Neck: No midline cervical tenderness Cardiovascular: Regular rate and rhythm. No pulse deficits. Respiratory: Mild tachypnea, crackles right lung Abdomen/GI: Soft, nontender Back: No spinal tenderness MS/ Extremity: Pulses equal, no cyanosis. Neurovascular intact. Full, normal range of motion. Equal circumference. Neuro: Awake and alert, GCS 15, oriented to person and situation, not time rn 10:29 08:43 Telemetry/MedSurg (Inpatient) rn bp 10:29 08:43 rn bp 14:49 10:29 [facility] ER HOLD bp bc6 14:49 10:29 ERHOLD- bp bc6
[2025-01-03] MEDS: AZITHROMYCIN IV 500 MG in NA CHLORIDE 0.9% 250 ML IVPB SCH (09:00)
--- NOTE | 2025-01-03 09:11 | P.HP ---
Certification for Inpatient Patient admitted to: Observation Practitioner: I am a practitioner with admitting privileges, knowledge of patient current condition, hospital course, and medical plan of care. Services: Services provided to patient in accordance with Admission requirements found in Title 42 Section 412.3 of the Code of Federal Regulations Patient History Date of Service: 01/03/25 Reason for admission: COVID, weakness History of Present Illness: 79-year-old female with a past medical history of hypertension, anemia, aneurysm, anxiety, CVA, recent 11/27 Had hemorrhagic stroke 2 months ago from uncontrolled hypertension, presents to the emergency room via EMS after a fall, reports associated fever, cough. She reports being seen in the emergency room yesterday diagnosed with COVID. She reports weakness is progressively worse. daughter at bedside is primary historian reported her mother fell today. She reported hearing a thump, mother was on the floor, was awake alert oriented, she reports moderate generalized weakness, poor appetite, not eating over the past few days.. She reports flulike symptoms recently diagnosed with COVID, has not started on Paxlovid. She is wearing a c-collar, CT of the head head is negative for acute fracture/findings. No reported chest pain, shortness of breath pain, abdominal pain, dizziness, plan to admit for fall, COVID-19, generalized weak ness. Allergies No Known Allergies Allergy (Unverified 01/03/25 09:59) - Past Medical/Surgical History -: Anemia -: Aneurysm post clipping -: CVA -: Hypertension -: Aneurysm surgery -: Cholecystectomy -: Total abdominal hysterectomy - Social History Smoking Status: Former smoker Alcohol use: No Place of Residence: Home (Resides at home with daughter, uses [facility] home health PT OT speech) Review of Systems 10-point ROS is otherwise unremarkable Physical Examination - Physical Exam General: Alert, In no apparent distress, Oriented x3, Other (Febrile, ill- appearing) HEENT: Other (Right forehead hematoma) Neck: Supple, 2+ carotid pulse no bruit Respiratory: Other (Coarse lung sounds) Cardiovascular: Normal pulses, Regular rate/rhythm Capillary refill: <2 Seconds Gastrointestinal: Normal bowel sounds, Soft and benign Musculoskeletal: Other (Moderate generalized weakness) - Studies Laboratory Data (last 24 hrs) 01/03/25 01/03/25 01/03/25 07:55 07:55 07:55 WBC 7.00 Hgb 12.9 D Hct 38.1 Plt Count 264 PT 13.0 INR 1.15 APTT 28.8 Sodium 140 Potassium 3.1 L BUN 11 Creatinine 0.55 Glucose 102 Total Bilirubin 0.4 AST 28 ALT 23 Alkaline Phosphatase 86 Assessment and Plan - Problems (Diagnosis) (1) Sepsis Current Visit: Yes Status: Acute Qualifiers: Sepsis acute organ dysfunction status: without acute organ dysfunction (2) COVID-19 Current Visit: Yes Status: Acute (3) Fall Current Visit: Yes Status: Acute (4) Dehydration Current Visit: Yes Status: Acute (5) Hypertension Current Visit: Yes Status: Acute Qualifiers: Hypertension type: unspecified Qualified Code(s): I10 - Essential (primary) hypertension (6) Protein calorie malnutrition Current Visit: Yes Status: Acute Qualifiers: Protein-calorie malnutrition severity: mild Qualified Code(s): E44.1 - Mild protein-calorie malnutrition (7) Hypokalemia Current Visit: Yes Status: Acute - Plan Assessment plan Sepsis without hypotension secondary to COVID, viral pneumonia Pulmonary consult Coarse lung sounds Atrovent, budesonide, IV antibiotics, azithromycin, ceftriaxone Cough suppressant O2 2 L keep sats greater than 92% Chest x-ray unremarkable Hypokalemia Trend electrolytes Replace as needed Fall History of CVA Protein calorie malnutrition, Protein calorie supplementation PT eval for ambulation Fall precautions Full code DVT SCDs Diet cardiac Disposition Home with home health PT, OT, speech, excellent health Discharge Plan: Home - Advance Directives Does patient have a Living Will: No Does patient have a Durable POA for Healthcare: No - Code Status/Comfort Care Code Status: Full Code Critical Care: No Time Spent Managing Pts Care (In Minutes): 55
[2025-01-03] MEDS ORDERED: ACETAMINOPHEN 500 MG TAB PO PRN (09:15)
[2025-01-03] MEDS ORDERED: ONDANSETRON 4 MG/2 ML VIAL IV PRN (09:15)
[2025-01-03] MEDS: BUDESONIDE 0.5 MG/2 ML NEB NEB SCH (09:21)
[2025-01-03] MEDS ORDERED: AZITHROMYCIN 500 MG INJ IVPB ONE (09:56)
[2025-01-03] MEDS ORDERED: NA CHLORIDE 0.9% 250 ML ONE (09:56)
[2025-01-03] MEDS: NA CHLORIDE 0.9% 1,000 ML IV SCH ×2 (10:00→20:48)
[2025-01-03] MEDS: NIRMATRELVIR/RITONAVIR TABLET PO SCH (10:30)
[2025-01-03] MEDS: POTASSIUM 25 MEQ EFFERV TAB PO ONE (11:17)
[2025-01-03] MEDS: CEFTRIAXONE 1,000 MG in NA CHLORIDE 0.9% 50 ML IVPB SCH (11:30)
[2025-01-03 11:51] VITALS: BMI 21.0
[2025-01-03] MEDS: ALBUTEROL 2.5 MG/3 ML NEB SOL NEB SCH (13:00)
[2025-01-03] MEDS ORDERED: ALBUTEROL 2.5 MG/3 ML NEB SOL ONE (13:38)
[2025-01-03] MEDS ORDERED: CEFTRIAXONE 1000 MG/VIAL ONE (13:50)
[2025-01-03] MEDS ORDERED: NA CHLORIDE 0.9% 100 ML ONE (13:51)
[2025-01-03] MEDS ORDERED: POTASSIUM 25 MEQ EFFERV TAB ONE (13:51)
[2025-01-03] MEDS ORDERED: PHENOL 1.4% ORAL SPRAY 180ML MM PRN (18:21)
[2025-01-03] MEDS: IPRATROPIUM BROM 0.5MG/2.5ML NEB PRN (19:18)
[2025-01-03] MEDS ORDERED: HYDRALAZINE HCL 20 MG/ML VIAL IV PRN (20:37)
[2025-01-03] MEDS: ACETAMINOPHEN 650MG/RECT SUPP PR PRN (20:48)
[2025-01-03] MEDS ORDERED: NIRMATRELVIR/RITONAVIR TABLET PO SCH (21:00)
[2025-01-04 06:46] LABS: Absolute Lymphocytes (CBC) 1.1 K/uL (0.7-4.9); Absolute Monocytes 0.7 K/uL (0.1-1.3); Absolute Neutrophil 6.2 K/uL (1.8-8.0); Basophils % 0.5 % (0-1.3); Eosinophils % 0.1 % (0-4.4); Hematocrit 38.8 % (36.0-45.0); Hemoglobin 13.3 g/dL (12.0-15.0); Lymphocytes % 13.4 % (15.3-44.8); MCH 28.7 pg (27.0-35.0); MCHC 34.4 g/dL (32.0-36.0); MCV 83.4 fL (80-100); MPV 7.6 fL (7.6-11.3); Monocytes % 8.6 % (3.3-12.3); Neutrophils % 77.4 % (41.7-73.7); Nucleated Red Blood Cells % 0.1 % (0-0); Platelets 228 thou/uL (152-406); RBC Red Blood Cell Count 4.65 M/uL (3.86-4.86); Red Cell Distribution Width 15.7 % (12.1-15.2)
[2025-01-04 07:03] LABS: Anion Gap 7.2 mEq/L (5.0-15.0); Phosphorus 4.1 mg/dL (2.5-4.9); Potassium 3.2 mEq/L (3.5-5.1)
--- NOTE | 2025-01-04 10:08 | P.CNS ---
Date of Consult: 01/03/25 Reason for Consult: Cough coronavirus infection Chief Complaint: COVID, weakness History of Present Illness: Patient is 79 years of age multiple medical problems in the past admitted with worsening cough congestion became suddenly worse daughter at the bedside admission was precipitated by a fall currently patient is alert responsive cooperative complaining of a cough no prior history of pulmonary complaints never smoked Allergies No Known Allergies Allergy (Unverified 01/03/25 09:59) - Past Medical/Surgical History Diabetic: No -: Anemia -: Aneurysm post clipping -: CVA -: Hypertension -: Aneurysm surgery -: Cholecystectomy -: Total abdominal hysterectomy - Social History Alcohol use: No Place of Residence: Home (Resides at home with daughter, uses [facility] home health PT OT speech) Review of Systems 10-point ROS is otherwise unremarkable General: Weakness Respiratory: Cough, Shortness of Breath Physical Examination Temp Pulse Resp BP Pulse Ox 97.2 F 71 17 117/53 L 98 01/04/25 04:00 01/04/25 04:00 01/04/25 04:00 01/04/25 04:00 01/04/25 04:00 General: Alert, Oriented x3, Moderate distress Respiratory: Expiratory wheezes Cardiovascular: Regular rate/rhythm, Normal S1 S2 Gastrointestinal: Normal bowel sounds, Soft and benign - Problems (1) COVID-19 Current Visit: Yes Status: Acute Plan: Patient is 79 years of age admitted with acute onset of chest congestion cough coronavirus infection labs chemistries reviewed all unremarkable she has got normal saturation treat with steroids and Paxlovid patient has mild hypokalemia possible discharge a.m.
--- NOTE | 2025-01-04 13:18 | P.PN ---
Date of Service: 01/04/25 Subjective Awake, conversing well worked with therapy by ambulating in the room Reports feeling better but is weak, Afebrile this morning no new complaints. ROS 10 point ROS as noted above, otherwise negative Physical Exam General: Alert, Oriented x3, NAD HEENT: Other (Right forehead hematoma) Neck: Supple, 2+ carotid pulse no bruit Respiratory: Symmentrical chest wall movement, on RA Cardiovascular: Normal pulses, RRR, S1 S2 present Capillary refill: <2 Seconds Gastrointestinal: Normal bowel sounds, Soft on palpation Musculoskeletal: Other (Moderate generalized weakness) Vitals Reviewed Problem list Sepsis without hypotension secondary to COVID, viral pneumonia Hypokalemia Fall History of CVA Protein calorie malnutrition Assessment and Plan COVID complicated with viral pneumonia Febrile Weakness Pulmonary consult Coarse lung sounds Atrovent, budesonide, IV antibiotics, azithromycin, ceftriaxone Continue paxlovid Cough suppressant currently on Room Air Chest x-ray unremarkable PT consulted- she ambulated 100' Dysphagia -Speech recommends soft bite sized pieces -Will continue to monitor Hypokalemia Improved, replaced this Am Trend electrolytes Replace as needed Fall History of CVA Protein calorie malnutrition Protein calorie supplementation PT eval for ambulation Fall precautions Full code DVT SCDs Diet cardiac Disposition Home with home health PT, OT, speech, excellent health <Karissa Cody - Last Filed: 01/04/25 14:01> Patient seen and examined, plan of care discussed with [facility]. Patient experiencing flulike symptoms. She is stable and saturating well on room. Patient reported to have had problems swallowing yesterday. No problems swallowing today. Speech therapy consulted and is soft diet recommended. Continue Paxlovid. Increase activity as tolerated. Possible discharge in a.m. <jabier zaragoza - Last Filed: 01/04/25 17:04>
--- NOTE | 2025-01-04 13:26 | EKG ---
Test Date: 2025-01-03 Test Time: 07:22:12 [facility] Manager: MARILU MEASUREMENT RESULTS: Intervals: Rate: 89 ID: [id number] QRSD: 82 QT: 360 QTc: 438 [place]: P: 29 ID: [id number] QRS: 53 T: 57 INTERPRETIVE STATEMENTS: Normal sinus rhythm Septal infarct, age undetermined Abnormal ECG Compared to ECG 01/02/2025 13:08:06 Myocardial infarct finding now present Electronically Signed On 01-04-25 13:19:30 CDT by Esequiel Cornelius
[2025-01-04] MEDS: AMOX/K CLAV 500 MG TAB PO SCH (20:38)
[2025-01-05 09:19] VITALS: O2SAT 97
[2025-01-05 11:05] LABS: Absolute Lymphocytes (CBC) 0.7 K/uL (0.7-4.9); Absolute Monocytes 0.3 K/uL (0.1-1.3); Absolute Neutrophil 5.2 K/uL (1.8-8.0); Basophils % 0.3 % (0-1.3); Eosinophils % 0.2 % (0-4.4); Hematocrit 44.3 % (36.0-45.0); Hemoglobin 14.8 g/dL (12.0-15.0); Lymphocytes % 11.1 % (15.3-44.8); MCH 27.8 pg (27.0-35.0); MCHC 33.5 g/dL (32.0-36.0); MCV 83.1 fL (80-100); MPV 8.1 fL (7.6-11.3); Monocytes % 4.8 % (3.3-12.3); Neutrophils % 83.6 % (41.7-73.7); Platelets 186 thou/uL (152-406); RBC Red Blood Cell Count 5.33 M/uL (3.86-4.86); Red Cell Distribution Width 15.8 % (12.1-15.2)
[2025-01-05 11:07] LABS: Anion Gap 8.7 mEq/L (5.0-15.0); Magnesium 1.8 mg/dL (1.6-2.4); Phosphorus 2.3 mg/dL (2.5-4.9); Potassium 2.7 mEq/L (3.5-5.1)
[2025-01-05 12:37] VITALS: BP 171/73; TEMP 98.3
--- NOTE | 2025-01-06 08:16 | P.DS ---
Admission Date: 01/05/25 Discharge Date: 01/05/25 Disposition: DC HOME/HOME HEALTH CARE Discharge Condition: GOOD Reason for Admission: COVID, weakness Brief History of Present Illness: Diagnosis Sepsis without hypotension secondary to COVID, viral pneumonia Hypokalemia Fall History of CVA Protein calorie malnutrition HPI 01/03/25 79-year-old female with a past medical history of hypertension, anemia, aneu rysm, anxiety, CVA, recent 11/27 Had hemorrhagic stroke 2 months ago from uncontrolled hypertension, presents to the emergency room via EMS after a fall, reports associated fever, cough. She reports being seen in the emergency room yesterday diagnosed with COVID. She reports weakness is progressively worse. daughter at bedside is primary historian reported her mother fell today. She reported hearing a thump, mother was on the floor, was awake alert oriented, she reports moderate generalized weakness, poor appetite, not eating over the past few days.. She reports flulike symptoms recently diagnosed with COVID, has not started on Paxlovid. She is wearing a c-collar, CT of the head head is negative for acute fracture/findings. No reported chest pain, shortness of breath pain, abdominal pain, dizziness, plan to admit for fall, COVID-19, generalized weakness. Hospital Course: Olivia was admitted and treated for the following diagnosis COVID complicated with viral pneumonia Febrile-resolved Weakness -Pulmonary consult- recommendations to continue paxlovid -tolerated and improved with Atrovent, budesonide, IV antibiotics, azithromycin, ceftriaxone -Continue paxlovid and Cough suppressant -Remained on Room Air this admission -Chest x-ray unremarkable Dysphagia -soft bite sized pieces per speech therapy Hypokalemia -tolerated and improved with replacement Fall History of CVA Protein calorie malnutrition -Encouraged Protein calorie supplementation -PT eval for ambulation- ambulated 100' -Fall precautions were in place for supportive care On 01/05/25, Olivia was seen on morning rounds hemodynamically stable. Dr. Cole has cleared her for discharge to continue paxlovid and augmentin. Olivia worked with PT and was able to transfer and ambulate with her daughter's support. She has remained on Room Air. Physical Exam General: AAO x3, NAD HEENT: Other (Right forehead hematoma)-improved Neck: Supple, 2+ carotid pulse no bruit Respiratory: Nonlabored breathing, on RA Cardiovascular: NSR, S1 S2 present Capillary refill: <2 Seconds Gastrointestinal: Soft on palpation Musculoskeletal: Other (Moderate generalized weakness) Vital Signs/Physical Exam: Temp Pulse Resp BP Pulse Ox 98.3 F 75 16 171/73 H 97 01/05/25 12:00 01/05/25 12:00 01/05/25 12:00 01/05/25 12:00 01/05/25 12:00 Laboratory Data at Discharge: WBC 6.20 thou/uL (4.3-10.9) 01/05/25 10:42 Hgb 14.8 g/dL (12.0-15.0) 01/05/25 10:42 Hct 44.3 % (36.0-45.0) 01/05/25 10:42 Plt Count 186 thou/uL (152-406) 01/05/25 10:42 PT 13.0 SECONDS (10-13.0) 01/03/25 07:55 INR 1.15 01/03/25 07:55 APTT 28.8 SECONDS (27.2-37.4) 01/03/25 07:55 Sodium 141 mEq/L (136-145) 01/05/25 10:42 Potassium 2.7 mEq/L (3.5-5.1) L 01/05/25 10:42 BUN 7 mg/dL (7-18) 01/05/25 10:42 Creatinine 0.48 mg/dL (0.55-1.02) L 01/05/25 10:42 Glucose 109 mg/dL (74-106) H 01/05/25 10:42 Phosphorus 2.3 mg/dL (2.5-4.9) L 01/05/25 10:42 Magnesium 1.8 mg/dL (1.6-2.4) 01/05/25 10:42 Total Bilirubin 0.4 mg/dL (0.2-1.0) 01/03/25 07:55 AST 28 U/L (15-37) 01/03/25 07:55 ALT 23 U/L (13-56) 01/03/25 07:55 Alkaline Phosphatase 86 U/L (45-117) 01/03/25 07:55 Home Medications: Amox/Clavulanate [Augmentin 500-125 mg Tab*] 500 mg PO BID 5 Days #10 tab 01/05/25 Nirmatrelvir/Ritonavir [Paxlovid 2X150 mg-100 mg] 3 tab PO BID 5 Days #1 disk 01/05/25 New Medications: Amox/Clavulanate [Augmentin 500-125 mg Tab*] 500 mg PO BID 5 Days #10 tab Nirmatrelvir/Ritonavir [Paxlovid 2X150 mg-100 mg] 3 tab PO BID 5 Days #1 disk Diet: Regular Activity: Fall precautions Followup: NONE,NONE [Primary Care Provider] -
== END 2025-01-05 13:59 | disposition home health service (06) | DRG 871 ==
LOC: ER 07:02 → ERHOLD 09:14 → 2ND 15:21 → OBSVTOIN 01-05 07:54
PROVIDERS: ADMIT Internal Medicine; ATTEND Internal Medicine
DX: A41.89 Other specified sepsis (principal); J12.82 Pneumonia due to coronavirus disease 2019; U07.1 COVID-19; E44.1 Mild protein-calorie malnutrition; E86.0 Dehydration; E87.6 Hypokalemia; I10 Essential (primary) hypertension; S00.83XA Contusion of other part of head, initial encounter; R13.10 Dysphagia, unspecified; Z86.73 Personal history of transient ischemic attack (TIA), and cerebral infarction without residual deficits; Z90.710 Acquired absence of both cervix and uterus; Z90.49 Acquired absence of other specified parts of digestive tract; Z87.891 Personal history of nicotine dependence; Z68.21 Body mass index [BMI] 21.0-21.9, adult; W18.30XA Fall on same level, unspecified, initial encounter; Y92.003 Bedroom of unspecified non-institutional (private) residence as the place of occurrence of the external cause; Y93.9 Activity, unspecified; Y99.9 Unspecified external cause status
CPT/HCPCS: 36415; 70450; 71045; 72125; 80048; 80053; 81001; 83605; 83735; 83880; 84100; 84484; 85025; 85610; 85730; 87040; 87070; 87428; 92610; 93005; 94640; 94760; 97112; 97116; 97161; 99285; G0378; J0360; J0696; J7030; J7050; J7613; J7626; J8499

== ENCOUNTER 2025-01-21 17:16 | Emergency (ER) | payer OTHER, BC ==
--- NOTE | 2025-01-21 18:19 | RAD REPORT ---
EXAM: CT brain without contrast HISTORY: Confusion COMPARISON: January 02, 2025 TECHNIQUE: Multiple contiguous axial images were obtained and a CT of the brain without contrast.. Sagittal and coronal reconstruction performed. Automated exposure control, adjustment of the mA and/or kV according to patient size, and/or iterative reconstruction. Unless otherwise specified, incidental f indings do not require dedicated imaging follow-up FINDINGS: An intracranial bleed is not seen Ventricles are normal caliber No extra-axial fluid collection noted Small low-density left internal capsule may represent an old lacunar infarct. Mild low-density parave ntricular and deep white matter may represent ischemic changes secondary to small vessel disease. No fluid within the visualized sinuses or mastoids noted. IMPRESSION: No acute intracranial abnormality noted. If the patient continues to have symptoms to suggest an acute intracranial abnormality then MRI of th e brain would be recommended.
[2025-01-21 18:42] LABS: Absolute Basophils 0.1 K/uL (0-0.5); Absolute Monocytes 0.7 K/uL (0.1-1.3); Absolute Neutrophil 4.6 K/uL (1.8-8.0); Eosinophils % 0.6 % (0-4.4); Hematocrit 37.1 % (36.0-45.0); Hemoglobin 12.7 g/dL (12.0-15.0); Lymphocytes % 27.1 % (15.3-44.8); MCH 28.5 pg (27.0-35.0); MCHC 34.3 g/dL (32.0-36.0); MCV 83.2 fL (80-100); Monocytes % 9.1 % (3.3-12.3); Neutrophils % 62.2 % (41.7-73.7); Platelets 462 thou/uL (152-406); RBC Red Blood Cell Count 4.46 M/uL (3.86-4.86); Red Cell Distribution Width 15.5 % (12.1-15.2)
[2025-01-21 18:56] LABS: Specific Gravity 1.006 (1.005-1.030); Sqamous Epithelial <5 /HPF (None Seen); Urine Bacteria <20 /HPF (<20); Urine Bilirubin NEGATIVE (Negative); Urine Blood Negative (Negative); Urine Clarity Clear (Clear); Urine Color Colorless (Yellow); Urine Crystals Unidentified Few /HPF (None Seen); Urine Culture Reflex Order NOT NEEDED; Urine Glucose NEGATIVE (Negative); Urine Ketones NEGATIVE (Negative); Urine Microscopic Reflex YN ORDER UMIC; Urine Nitrite NEGATIVE (Negative); Urine Protein NEGATIVE (Negative); Urine RBC <5 /HPF (None Seen); Urine Urobilinogen Normal (Normal); Urine WBC <5 /HPF (<5)
[2025-01-21] MEDS ORDERED: NA CHLORIDE 0.9% 500 ML ONE (19:00)
[2025-01-21] MEDS ORDERED: NA CHLORIDE 0.9% 1,000 ML ONE (19:00)
[2025-01-21 19:02] LABS: Albumin/Globulin Ratio 0.7 (1.1-1.8); Anion Gap 8.2 mEq/L (5.0-15.0); Bilirubin Total 0.4 mg/dL (0.2-1.0); Globulin 4.2 g/dL (2.3-3.5); PT Prothrombin Time 12.5 SECONDS (10-13.0); PTT, Activated Partial Thromb 31.6 SECONDS (27.2-37.4); Potassium 3.2 mEq/L (3.5-5.1); Protein, Total 7.2 g/dL (6.4-8.2); Protime INR 1.1; Troponin High Sensitivity 7.6 pg/mL (<58.9)
--- NOTE | 2025-01-21 19:09 | RAD REPORT ---
Procedure: Chest Single View HISTORY: Shortness of breath COMPARISON: January 03, 2025 FINDINGS: The lungs appear clear of acute infiltrate. No significant pleural effusion noted. The heart is probably mildly enlarged. Aorta is tortuous/ectatic. IMPRESSION: No acute abnormality is displayed.
--- NOTE | 2025-01-21 19:43 | EDPHYS ---
Physician Documentation [facility] Name: Olivia Curtis Age: 79 yrs Sex: Female : 1945 Arrival Date: 01/21/2025 Time: 17:16 Bed 3 Private MD: ED Physician Esther Ramirez HPI: 01/21 19:40 This 79 yrs old Female presents to ER via Ambulatory with complaints of gb1 Altered Mental Status. 19:40 79-year-old female brought by her daughters for concern for altered mental gb1 status. She is history of anemia, aneurysm, anxiety, CVA, hypertension and dementia. She lives at home and there is been a concern for stool in the patient wiping the opposite way. She denies any fever chills any nausea vomiting. She does have a history of a head bleed and that is what they are concerned for. Patient's daughters at the bedside deny any recent trauma. They deny any weakness. They deny any recent falls.. Historical: - Allergies: 17:35 No Known Allergies; jl7 - PMHx: 17:35 Anemia; Aneurysm; Anxiety; Cerebrovascular accident; Hypertension; jl7 18:30 Dementia; aa5 - PSHx: 17:35 Cholecystectomy; Total abdominal hysterectomy; jl7 - Immunization history:: Adult Immunizations unknown. - Infectious Disease History:: Denies. - Social history:: Smoking status: Patient denies any tobacco usage or history of. Exam: 19:40 Constitutional: This is a well developed, well nourished patient who is awake, alert, gb1 and in no acute distress. Head/Face: Normocephalic, atraumatic. Eyes: Pupils equal round and reactive to light, extra-ocular motions intact. Lids and lashes normal. Conjunctiva and sclera are non-icteric and not injected. Cornea within normal limits. Periorbital areas with no swelling, redness, or edema. ENT: Nares patent. No nasal discharge, no septal abnormalities noted. Tympanic membranes are normal and external auditory canals are clear. Oropharynx with no redness, swelling, or masses, exudates, or evidence of obstruction, uvula midline. Mucous membranes moist. Neck: Trachea midline, no thyromegaly or masses palpated, and no cervical lymphadenopathy. Supple, full range of motion without nuchal rigidity, or vertebral point tenderness. No Meningismus. Chest/axilla: Normal chest wall appearance and motion. Nontender with no deformity. No lesions are appreciated. Cardiovascular: Regular rate and rhythm with a normal S1 and S2. No gallops, murmurs, or rubs. Normal PMI, no JVD. No pulse deficits. Respiratory: Lungs have equal breath sounds bilaterally, clear to auscultation and percussion. No rales, rhonchi or wheezes noted. No increased work of breathing, no retractions or nasal flaring. Abdomen/GI: Soft, non-tender, with normal bowel sounds. No distension or tympany. No guarding or rebound. No evidence of tenderness throughout. Back: No spinal tenderness. No costovertebral tenderness. Full range of motion. Skin: Warm, dry with normal turgor. Normal color with no rashes, no lesions, and no evidence of cellulitis. MS/ Extremity: Pulses equal, no cyanosis. Neurovascular intact. Full, normal range of motion. Neuro: Awake and alert, GCS 15, oriented to person, place, time, and situation. Cranial nerves II-XII grossly intact. Motor strength 5/5 in all extremities. Sensory grossly intact. Cerebellar exam normal. Normal gait. Vital Signs: 17:32 BP 187 / 78; Pulse 77; Resp 17; Temp 97.8; Pulse Ox 100% ; Weight 53.07 kg; cm10 19:00 BP 173 / 64; Pulse 69; Resp 17 S; Pulse Ox 100% on R/A; aa5 MDM: 17:27 Medical Screening Exam initiated gb1 19:40 ED course: 79-year-old female with normal mental status on my exam. H\T\H is stable her gb1 CT of her brain is without any intracranial acute findings. No subdural hematoma or subarachnoid hemorrhage. Patient does not have a UTI and she otherwise does not have any white blood cell count at this time no concern for infection or sepsis. Daughters at the bedside and very appropriate I recommend discharge home. She does not appear to be dehydrated or have any acute findings that would read suggest that she needs a hospitalization or evaluation at a higher level of care. Given explicit return precautions which the patient and her daughters are compliant with prior to discharge home today.. 01/21 17:51 Order name: Blood Culture Adult (2) gb1 01/21 17:51 Order name: CBC with Diff; Complete Time: 18:46 01/21 17:51 Order name: CMP; Complete Time: 19:05 01/21 17:51 Order name: Lactate w/ 2H reflex if indic.; Complete Time: 19:05 01/21 17:51 Order name: Protime (+inr); Complete Time: 19:05 01/21 17:51 Order name: Ptt, Activated; Complete Time: 19:05 01/21 17:51 Order name: Urinalysis w/ reflexes; Complete Time: 19:05 01/21 17:51 Order name: NT PRO-BNP; Complete Time: 19:05 01/21 17:51 Order name: Troponin HS; Complete Time: 19:05 01/21 17:51 Order name: Chest Single View XRAY; Complete Time: 19:27 01/21 17:52 Order name: Head Brain Wo Cont CT; Complete Time: 18:23 01/21 17:51 Order name: EKG; Complete Time: 17:52 01/21 17:51 Order name: Cardiac monitoring; Complete Time: 18:53 01/21 17:51 Order name: EKG - Nurse/Tech; Complete Time: 18:52 01/21 17:51 Order name: IV Saline Lock - Large Bore; Complete Time: 18:53 01/21 17:51 Order name: Labs collected and sent; Complete Time: 18:53 01/21 17:51 Order name: O2 Per Protocol; Complete Time: 18:53 01/21 17:51 Order name: O2 Sat Monitoring; Complete Time: 18:53 01/21 17:51 Order name: Vital Signs; Complete Time: 18:53 01/21 17:52 Order name: Straight Cath - Urine; Complete Time: 18:53 gb Administered Medications: 19:16 Drug: NS 0.9% IV (30 ml/kg) 30 ml/kg IV at bolus once; Sepsis Protocol; to be given as dd2 a bolus over 90 minutes Route: IV; Rate: bolus; Site: left antecubital; 20:16 Follow up: Response: No adverse reaction; IV Status: Completed infusion; IV Intake: cm10 1592.1ml Disposition Summary: 01/21/25 19:43 Discharge Ordered Notes: Location: Home gb1 Problem: an acute exacerbation gb1 Symptoms: have improved gb1 Condition: Stable gb1 Diagnosis - Anemia, unspecified gb1 - Dementia in other diseases classified elsewhere without behavioral disturbance gb1 Followup: gb1 - With: Private Physician - When: - Reason: Re-evaluation by your physician Discharge Instructions: - Discharge Summary Sheet gb1 - Dementia gb1 Forms: - Medication Reconciliation Form gb1 - Antibiotic Education gb1 - Prescription Opioid Use gb1 - Patient Portal Instructions gb1 - Leadership Thank You Letter gb1 Signatures: Dispatcher [employer] EDMS Leta Sosa, RN RN aa5 Tremaine Jimenes RN RN jl7 Esther Ramirez MD MD gb1 ROCIO ASCENCIO RN RN dd2 Nory Schulte RN cm10 Corrections: (The following items were deleted from the chart) 17:52 17:52 BLOOD CULTURE*+BA.LAB.BRZ ordered. EDMS EDMS 17:52 17:52 CBC+H.LAB.BRZ ordered. EDMS EDMS 17:52 17:52 COMPREHENSIVE METABOLIC PANEL+C.LAB.BRZ ordered. EDMS EDMS 17:52 17:52 LACTATE+C.LAB.BRZ ordered. EDMS EDMS 17:52 17:52 PROTIME (+INR)+COAG.LAB.BRZ ordered. EDMS EDMS 17:52 17:52 PTT, ACTIVATED+COAG.LAB.BRZ ordered. EDMS EDMS 17:52 17:52 Urinalysis+U.LAB.BRZ ordered. EDMS EDMS 17:52 17:52 PROBNP+C.LAB.BRZ ordered. EDMS EDMS 17:52 17:52 Troponin High Sensitivity+C.LAB.BRZ ordered. EDMS EDMS 18:55 17:51 Accucheck ordered. gb1 aa5
--- NOTE | 2025-01-21 19:43 | ER ---
Nurse's Notes [facility] Name: Olivia Curtis Age: 79 yrs Sex: Female : 1945 Arrival Date: 01/21/2025 Time: 17:16 Bed 3 Private MD: Diagnosis: Anemia, unspecified;Dementia in other diseases classified elsewhere without behavioral disturbance Presentation: 01/21 17:32 Chief complaint: Patient's son or daughter states: Daughter reports pt has been jl7 confused, not making a lot of sense when talking for more than a week, not sure if she's got something going on with urine or if she has another brain bleed, denies any known recent fall, pt reports discomfort with urination. Coronavirus screen: At this time, the client does not indicate any symptoms associated with coronavirus-19. Ebola Screen: No symptoms or risks identified at this time. Initial Sepsis Screen: Does the patient meet any 2 criteria? No. Patient's initial sepsis screen is negative. Does the patient have a suspected source of infection? No. Patient's initial sepsis screen is negative. Risk Assessment: Do you want to hurt yourself or someone else? Patient reports no desire to harm self or others. Onset of symptoms is unknown. 17:32 Method Of Arrival: Ambulatory [facility] 17:32 Acuity: BRYNN 3 jl7 Triage Assessment: 17:35 General: Appears in no apparent distress. uncomfortable, Behavior is calm, cooperative, jl7 appropriate for age. Pain: Denies pain. Neuro: Level of Consciousness is awake, alert, obeys commands, confused, Oriented to person. Historical: - Allergies: 17:35 No Known Allergies; jl7 - PMHx: 17:35 Anemia; Aneurysm; Anxiety; Cerebrovascular accident; Hypertension; jl7 18:30 Dementia; aa5 - PSHx: 17:35 Cholecystectomy; Total abdominal hysterectomy; jl7 - Immunization history:: Adult Immunizations unknown. - Infectious Disease History:: Denies. - Social history:: Smoking status: Patient denies any tobacco usage or history of. Screenin:30 [facility] ED Fall Risk Assessment (Adult) [facility] ED Fall Risk Assessment (Adult) aa5 History of falling in the last 3 months, including since admission No falls in past 3 months (0 pts) Confusion or Disorientation Yes (5 pts) Intoxicated or Sedated Impaired Gait Mobility Assist Device Used Yes (1 pt) Altered Elimination Score/Fall Risk Level 3 or more points = High Risk Oriented to surroundings, Maintained a safe environment, Educated pt \T\ family on fall prevention, incl call for assistance when getting out of bed, Assessed \T\ reinforced patient's understanding of fall precautions, Hourly rounding (assess needs \T\ fall precautionary measures) done. Abuse screen: No signs of abuse noted. Nutritional screening: No deficits noted. Tuberculosis screening: No symptoms or risk factors identified. Assessment: 18:30 General: Appears comfortable, Behavior is calm, cooperative. Pain: Complains of pain in aa5 suprapubic area. Neuro: Level of Consciousness is awake, obeys commands, confused, Oriented to person, Moves all extremities. Gait is steady, Speech is normal, Facial symmetry appears normal, Pt's family reports confusion. . Cardiovascular: Heart tones S1 S2 present Patient's skin is warm and dry. Rhythm is sinus rhythm. Respiratory: Airway is patent Respiratory effort is even, unlabored, Respiratory pattern is regular, symmetrical. GI: Abdomen is round non-distended, Bowel sounds present X 4 quads. Abd is soft and non tender X 4 quads. Patient currently denies intolerance of fluids, intolerance of food, nausea, vomiting. : Reports pain in suprapubic area. EENT: No signs and/or symptoms were reported regarding the EENT system. Derm: Skin is pink, warm \T\ dry. Musculoskeletal: Pt is ambulatory using walker. 18:44 Reassessment: Pt assisted to restroom, ambulatory with walker with steady gait. Pt aa5 placed back in bed. Bed in low position, side rails x 2, call dutta within reach. Pt's family at bedside. . Vital Signs: 17:32 BP 187 / 78; Pulse 77; Resp 17; Temp 97.8; Pulse Ox 100% ; Weight 53.07 kg; cm10 19:00 BP 173 / 64; Pulse 69; Resp 17 S; Pulse Ox 100% on R/A; aa5 ED Course: 17:19 Patient arrived in ED. im 17:26 Esther Ramirez MD is Attending Physician. gb1 17:34 Nory Schulte, SHALOM is Primary Nurse. cm10 17:34 Triage completed. jl7 17:35 Arm band placed on right wrist. jl7 18:04 Missed attempt(s): 20 gauge in right forearm. Bleeding controlled, band aid applied, cm10 catheter tip intact. 18:11 Head Brain Wo Cont CT In Process Unspecified. EDMS 18:30 Patient has correct armband on for positive identification. Bed in low position. Call aa5 light in reach. Side rails up X2. Adult w/ patient. Client placed on continuous cardiac and pulse oximetry monitoring. NIBP monitoring applied. court monitor on. Pulse ox on. NIBP on. 18:30 Inserted saline lock: 20 gauge in left antecubital area, using aseptic technique. aa5 Flushed with 10 mL NS. 18:32 Chest Single View XRAY In Process Unspecified. EDMS 18:33 Initial lab(s) drawn, by me, sent to lab. First set of blood cultures drawn by me. aa5 18:46 Urine collected: clean catch specimen, sent to lab. aa5 18:55 Leta Sosa, RN is Primary Nurse. aa5 18:55 No provider procedures requiring assistance completed. aa5 19:06 Report given to SHALOM Nicole. aa5 20:15 Provided Education on: Follow-up instructions. cm10 20:15 IV discontinued, intact, bleeding controlled, No redness/swelling at site. Pressure cm10 dressing applied. Administered Medications: 19:16 Drug: NS 0.9% IV (30 ml/kg) 30 ml/kg IV at bolus once; Sepsis Protocol; to be given as dd2 a bolus over 90 minutes Route: IV; Rate: bolus; Site: left antecubital; 20:16 Follow up: Response: No adverse reaction; IV Status: Completed infusion; IV Intake: cm10 1592.1ml Medication: 18:55 VIS not applicable for this client. aa5 Intake: 20:16 IV: 1592ml; Total: 1592ml. cm10 Outcome: 19:43 Discharge ordered by MD. gb1 20:15 Discharged to home with family, cm10 20:15 Condition: good 20:15 Discharge instructions given to patient, family, Instructed on discharge instructions, follow up and referral plans. Demonstrated understanding of instructions, follow-up care, 20:15 Patient left the ED. cm10 Signatures: Dispatcher [employer] EDIA Leta Sosa, RN RN aa5 Tremaine Jimenes RN RN jl7 Karlie Beckett Clarissa, RN RN cm10 Esther Ramirez MD MD gb1 ROCIO ASCENCIO RN RN dd2 Corrections: (The following items were deleted from the chart) 18:07 17:32 BP 187 / 78; Pulse 77bpm; Resp 71bpm; Pulse Ox 100%; Temp 97.8F; 53.07 kg; jl7 cm10 18:55 18:30 [facility] ED Fall Risk Assessment (Adult) aa5 aa5
[2025-01-21 20:43] VITALS: TEMP 97.8; O2SAT 100
[2025-01-21 20:44] VITALS: BP 173/64
--- NOTE | 2025-01-23 12:41 | EKG ---
Test Date: 2025-01-21 Test Time: 18:27:36 Marinator: DEBORAH MEASUREMENT RESULTS: Intervals: Rate: 75 NC: 132 QRSD: 76 QT: 416 QTc: 464 [place]: P: 47 NC: 132 QRS: 13 T: 65 INTERPRETIVE STATEMENTS: Normal sinus rhythm Inferior infarct, age undetermined Cannot rule out Anterior infarct, age undetermined Abnormal ECG Compared to ECG 01/03/2025 07:22:12 No significant changes Electronically Signed On 01-23-25 12:37:11 CDT by Esequiel Cornelius
== END 2025-01-21 20:15 | disposition home or self-care (01) ==
LOC: ER 17:16
DX: D64.9 Anemia, unspecified (principal); F02.80 Dementia in other diseases classified elsewhere, unspecified severity, without behavioral disturbance, psychotic disturbance, mood disturbance, and anxiety; I10 Essential (primary) hypertension; Z86.73 Personal history of transient ischemic attack (TIA), and cerebral infarction without residual deficits
CPT/HCPCS: 96365; 93005; 87040; 85025; 81001; 36415; 85610; 83605; 85730; 84484; 80053; 83880; 70450; 71045; 99285; J7040; J7030

== ENCOUNTER 2025-02-23 18:48 | Emergency (ER) | payer OTHER, BC ==
--- NOTE | 2025-02-23 19:46 | RAD REPORT ---
EXAM: Chest Single View HISTORY: 80 years Female CHEST PAIN COMPARISON: 01/21/2025 FINDINGS: LUNGS/PLEURA: The lungs are clear. No pleural effusions or pneumothorax. No pulmonary edema. CARDIAC/MEDIASTINUM: The cardiac silhouette is within normal limits. UPPER ABDOMEN: No significant abnormality. BONES: No acute abnormality. LINES/TUBES/OTHER: N/A IMPRESSION: No evidence of acute cardiopulmonary disease.
--- NOTE | 2025-02-23 20:58 | RAD REPORT ---
EXAMINATION: Head Brain Wo Cont CLINICAL INDICATION: Female, 80 years old.facial numbness TECHNIQUE: Axial CT images from the skull base to the vertex without intravenous contrast. Coronal an d sagittal reformatted images were created from the data set. One or more of the following dose reduction techniques were used: Automated exposure control, adjustment of the mA and/or kV according to patient size, and/or iterative reconstruction. Unless otherwise specified, incidental findings do not require dedicated imaging follow-up. [id number]. COMPARISON: 01/21/2025 FINDINGS: INTRACRANIAL: Slightly hyperattenuating structure at the left basal ganglia with some surrounding hyp oattenuation demonstrating increased conspicuity from prior. No hydrocephalus. No mass effect or midline shift. Moderate chronic small vessel ischemic changes. VASCULATURE: Intracranial atherosclerotic changes. Left ICA stent. SCALP/SKULL: No calvarial fracture identified. No acute soft tissue abnormality. SINUSES: The visualized paranasal sinuses are mostly clear. No significant mastoid fluid. IMPRESSION: Hyperattenuating structure in the left basal ganglia is not the same attenuation of hemorrhage but is new since 01/21/25. It could represent subacute hemorrhage. Further evaluation with MRI with and without contrast is recommended.
[2025-02-23 21:34] LABS: Absolute Eosinophils 0.1 K/uL (0-0.5); Absolute Lymphocytes (CBC) 1.5 K/uL (0.7-4.9); Absolute Monocytes 0.6 K/uL (0.1-1.3); Absolute Neutrophil 4.4 K/uL (1.8-8.0); Basophils % 0.5 % (0-1.3); Eosinophils % 1.7 % (0-4.4); Hematocrit 31.7 % (36.0-45.0); Hemoglobin 10.7 g/dL (12.0-15.0); Lymphocytes % 22.5 % (15.3-44.8); MCH 27.9 pg (27.0-35.0); MCHC 33.8 g/dL (32.0-36.0); MCV 82.5 fL (80-100); MPV 7.4 fL (7.6-11.3); Monocytes % 8.7 % (3.3-12.3); Neutrophils % 66.6 % (41.7-73.7); Nucleated Red Blood Cells % 0.1 % (0-0); Platelets 337 thou/uL (152-406); RBC Red Blood Cell Count 3.85 M/uL (3.86-4.86); Red Cell Distribution Width 15.4 % (12.1-15.2)
[2025-02-23 21:41] LABS: PT Prothrombin Time 13.6 SECONDS (10-13.0); Protime INR 1.2
[2025-02-23 21:56] LABS: Albumin 2.8 g/dL (3.4-5.0); Albumin/Globulin Ratio 0.7 (1.1-1.8); Anion Gap 6.4 mEq/L (5.0-15.0); Bilirubin Direct 0.2 mg/dL (0-0.2); Bilirubin Indirect, Calculated 0.4 mg/dL (0.2-0.8); Bilirubin Total 0.6 mg/dL (0.2-1.0); Globulin 4.1 g/dL (2.3-3.5); Potassium 3.4 mEq/L (3.5-5.1); Protein, Total 6.9 g/dL (6.4-8.2); Troponin High Sensitivity 8.4 pg/mL (<58.9)
[2025-02-23] MEDS ORDERED: cloNIDine HCL 0.1 MG TAB ONE (21:58)
[2025-02-23] MEDS ORDERED: DIAZEPAM 2 MG TABLET ONE (23:03)
--- NOTE | 2025-02-23 23:05 | ER ---
Nurse's Notes [facility] Name: Olivia Curtis Age: 80 yrs Sex: Female : 1945 Arrival Date: 02/23/2025 Time: 18:48 Bed 12 Private MD: Diagnosis: Subacute left basal ganglia hemorrhage, Acute Headache Presentation: 02/23 19:13 Chief complaint: Patient states: c/o left sided facial pain and numbness that started me1 about 18:45 tonight. Numbness/pain has resolved. Coronavirus screen: At this time, the client does not indicate any symptoms associated with coronavirus-19. Ebola Screen: No symptoms or risks identified at this time. Initial Sepsis Screen: Does the patient meet any 2 criteria? No. Patient's initial sepsis screen is negative. Does the patient have a suspected source of infection? No. Patient's initial sepsis screen is negative. Risk Assessment: Do you want to hurt yourself or someone else? Patient reports no desire to harm self or others. Onset of symptoms was February 23, 2025 at 18:45. 19:13 Method Of Arrival: Wheelchair me1 19:13 Acuity: BRYNN 3 me1 Historical: - Allergies: 19:16 No Known Allergies; me1 - PMHx: 19:16 Anemia; Aneurysm; Anxiety; Cerebrovascular accident; Dementia; Hypertension; me1 - PSHx: 19:16 Cholecystectomy; Total abdominal hysterectomy; me1 - Immunization history:: Adult Immunizations up to date. - Infectious Disease History:: Denies. - Social history:: Smoking status: Patient/guardian denies using tobacco, but has a distant history of tobacco abuse. - Family history:: not pertinent. Screenin:40 [facility] ED Fall Risk Assessment (Adult) History of falling in the last 3 months, dd2 including since admission No falls in past 3 months (0 pts) Confusion or Disorientation No (0 pts) Intoxicated or Sedated No (0 pts) Impaired Gait No (0 pts) Mobility Assist Device Used No (0 pt) Altered Elimination No (0 pt) Score/Fall Risk Level 0 - 2 = Low Risk Maintained a safe environment, Provided non-skid footwear, Hourly rounding (assess needs \T\ fall precautionary measures) done. Abuse screen: Denies threats or abuse. Nutritional screening: No deficits noted. Tuberculosis screening: No symptoms or risk factors identified. Assessment: 20:40 General: Appears in no apparent distress. well groomed, well developed, well nourished, dd2 Behavior is calm, cooperative, appropriate for age, Reports c/o left sided facial pain and numbness that started about 18:45 tonight. Numbness/pain has resolved. Pain: Denies pain. Neuro: Level of Consciousness is awake, alert, obeys commands, Oriented to person, place, time, situation, Appropriate for age Inorganic Chemical Technician are equal bilaterally Moves all extremities. Full function Gait is steady, Speech is normal, Facial symmetry appears normal, Pupils are PERRLA, Intact. Cardiovascular: Patient's skin is warm and dry. Respiratory: Airway is patent Trachea midline Respiratory effort is even, unlabored, Respiratory pattern is regular, symmetrical. GI: No signs and/or symptoms were reported involving the gastrointestinal system. : No signs and/or symptoms were reported regarding the genitourinary system. EENT: No signs and/or symptoms were reported regarding the EENT system. Derm: Skin is intact, is healthy with good turgor, Skin is pink, warm \T\ dry. Musculoskeletal: No signs and/or symptoms reported regarding the musculoskeletal system. Vital Signs: 19:13 BP 132 / 75; Pulse 72; Resp 16; Temp 98.2; Pulse Ox 100% ; Weight 49.9 kg; Height 5 ft. me1 2 in. ; Pain 0/10; 21:00 BP 171 / 78; Pulse 64; Resp 15; Pulse Ox 100% ; dd2 21:51 BP 170 / 77; Pulse 69; Resp 17; Pulse Ox 100% ; dd2 23:02 BP 141 / 73; Pulse 68; Resp 16; Pulse Ox 100% on R/A; jb4 19:13 Body Mass Index 20.12 (49.90 kg, 157.48 cm) me1 19:13 Pain Scale: Adult me1 Arnold Coma Score: 21:56 Eye Response: spontaneous(4). Motor Response: obeys commands(6). Verbal Response: sp4 oriented(5). Total: 15. NIH Stroke Scale Scores: 21:36 NIHSS Score: 0 sp4 ED Course: 18:53 Patient arrived in ED. ts1 19:09 Roel Puentes MD is Attending Physician. sp4 19:16 Triage completed. me1 19:16 Arm band placed on. me1 19:38 XRAY Chest (1 view) In Process Unspecified. EDMS 20:20 CT Head Brain wo Cont In Process Unspecified. EDMS 20:40 Patient has correct armband on for positive identification. Bed in low position. Call dd2 light in reach. Side rails up X2. Provided Education on: POC. Verbalized understanding.. Client placed on continuous cardiac and pulse oximetry monitoring. NIBP monitoring applied. Pulse ox on. NIBP on. 20:40 No provider procedures requiring assistance completed. dd2 21:10 Kathy Banda, RN is Primary Nurse. me1 21:29 Initial lab(s) drawn, by nv, sent to lab. EKG done, by ED staff, reviewed by Roel Puentes MD. Inserted saline lock: 22 gauge in left antecubital area, using aseptic technique. 22:06 initiated transfer with spoke with vk 23:14 patient was accepted to SW to [facility] ICU to Dr. Austin \T\[id number] accepting admin Gwendolyn Montgomery \T\2253 patient report # [phone] initiated transfer with EMS spoke with Janna patient was accepted. 23:35 Patient transferred, IV remains in place. jb4 Administered Medications: 21:59 Drug: cloNIDine PO 0.1 mg PO once Route: PO; dd2 23:06 Follow up: Response: (VIS) Vaccine information sheet provided today. Questions and/or jb4 concerns addressed. VIS edition date: May 08, 2021.; Marked relief of symptoms 23:06 Drug: Diazepam PO 2 mg PO once Route: PO; jb4 23:35 Follow up: Response: No adverse reaction jb4 Medication: 20:40 VIS not applicable for this client. dd2 Outcome: 23:05 ER care complete, transfer ordered by . sp4 23:35 Transferred by ground EMS to [facility], Transfer form completed. X-rays jb4 sent w/ patient. 23:35 Condition: stable 23:35 Discharge instructions given to patient, family, Instructed on the need for transfer, Demonstrated understanding of instructions, 23:36 Patient left the ED. jb4 NIH Stroke Scale - NIH Stroke Score Date: 02/23/2025 Time: 21:36 Total Score = 0 10. Dysarthria (speech clarity - read or repeat words) - 0(Normal) 11. Extinction and Inattention (visual/tactile/auditory/spatial/personal) - 0(No abnormality) 1a. Level of Consciousness (LOC) - 0(Alert) 1b. Level of Consciousness (LOC) (Month \T\ Age) - 0(Both) 1c. LOC Commands (Open \T\ Closes Eyes/Studio Engineer) - 0(Both) 2. Best Gaze (Lateral Gaze Paresis) - 0(Normal) 3. Visual Field Loss - 0(No visual loss) 4. Facial Palsy - 0(Normal) 5a. Left Arm: Motor (10-second hold) - 0(No drift) 5b. Right Arm: Motor (10-second hold) - 0(No drift) 6a. Left Leg: Motor (5-second hold - always test supine) - 0(No drift) 6b. Right Leg: Motor (5-second hold - always test supine) - 0(No drift) 7. Limb Ataxia (finger/nose \T\ heel/mcclure - test with eyes open) - 0(Absent) 8. Sensory Loss (pinprick arms/legs/face) - 0(Normal) 9. Best Language: Aphasia (description/naming/reading) - 0(No aphasia) Initials: sp4 Signatures: Dispatcher [employer] Josiah Johnston, RN RN jb4 Roel Puentes MD MD sp4 Zena De Leon PAS PAS ts1 Kathy Banda RN RN me1 Ann Wetzel DIANA, RN RN dd2 Corrections: (The following items were deleted from the chart) 21:54 19:13 Chief complaint: Patient states: c/o left sided facial pain and numbness dd2 that started about 18:45 tonight. Numbness/pain has resolved. me1
--- NOTE | 2025-02-23 23:05 | EDPHYS ---
Physician Documentation [facility] Name: Olivia Curtis Age: 80 yrs Sex: Female : 1945 Arrival Date: 02/23/2025 Time: 18:48 Bed 12 Private MD: ED Physician Roel Puentes HPI: 02/23 21:37 This 80 yrs old Female presents to ER via Wheelchair with complaints of sp4 Numbness Of Face, Headache. 21:56 This 80-year-old female who presents with acute facial numbness and headache. Patient sp4 has history of aneurysm with embolization at [facility] on 02/06/2025. Patient was discharged to [facility] 02/09/2025 . Since her stroke patient has aphasia and also has difficult time explaining her symptoms. Most of her history obtained from family. Patient's daughter says numbness and headache started about 30 minutes prior to arrival. Denied any other symptoms.. Historical: - Allergies: 19:16 No Known Allergies; me1 - PMHx: 19:16 Anemia; Aneurysm; Anxiety; Cerebrovascular accident; Dementia; Hypertension; me1 - PSHx: 19:16 Cholecystectomy; Total abdominal hysterectomy; me1 - Immunization history:: Adult Immunizations up to date. - Infectious Disease History:: Denies. - Social history:: Smoking status: Patient/guardian denies using tobacco, but has a distant history of tobacco abuse. - Family history:: not pertinent. ROS: 21:56 Constitutional: Negative for fever, chills, and weight loss, positive for acute sp4 moderate numbness of face, positive for headache 21:56 All other systems are negative, Exam: 21:56 Radiologist reports: Possible subacute left basal ganglia hemorrhage. TNK sp4 contraindicated. Also on arrival NIHSS 0. TNK not indicated 21:56 Constitutional: This is a well developed, well nourished patient who is awake, alert, and in no acute distress. Signs of mild to moderate dementia. Signs of chronic wordy aphasia Head/Face: Normocephalic, atraumatic. Eyes: Pupils equal round and reactive to light, extra-ocular motions intact. Lids and lashes normal. Conjunctiva and sclera are not injected. Cornea within normal limits. Periorbital areas with no swelling, redness, or edema. ENT: Nares patent. No nasal discharge, no septal abnormalities noted. Tympanic membranes are normal and external auditory canals are clear. Oropharynx with no redness, swelling, or masses, exudates, or evidence of obstruction, uvula midline. Mucous membranes moist. Neck: Trachea midline, no thyromegaly or masses palpated, and no cervical lymphadenopathy. Supple, full range of motion without nuchal rigidity, or vertebral point tenderness. Chest/axilla: Normal chest wall appearance and motion. Nontender with no deformity. No lesions are appreciated. Cardiovascular: Regular rate and rhythm with a normal S1 and S2. No gallops, murmurs, or rubs. Normal PMI, no JVD. No pulse deficits. Respiratory: Lungs have equal breath sounds bilaterally, clear to auscultation and percussion. No rales, rhonchi or wheezes noted. No increased work of breathing, no retractions or nasal flaring. Abdomen/GI: Soft, with normal bowel sounds. No distension or tympany. No guarding or rebound. No evidence of tenderness throughout. Back: No spinal tenderness. No costovertebral tenderness. Skin: Warm, dry with normal turgor. Normal color with no rashes, no lesions, and no evidence of cellulitis. MS/ Extremity: Pulses equal, no cyanosis. Neurovascular intact. Full, normal range of motion. Neuro: Awake and alert, GCS 15, oriented to person, place, Cranial nerves II-XII grossly intact. Motor strength 5/5 in all extremities. Sensory grossly intact. Psych: Awake, alert, with orientation to person, place Behavior, mood, and affect are within normal limits 21:56 ECG was reviewed by the Attending Physician. EKG 2126 normal sinus rhythm normal EKG rate 64. An electrocardiogram was deferred on this patient Vital Signs: 19:13 BP 132 / 75; Pulse 72; Resp 16; Temp 98.2; Pulse Ox 100% ; Weight 49.9 kg; Height 5 ft. me1 2 in. ; Pain 0/10; 21:00 BP 171 / 78; Pulse 64; Resp 15; Pulse Ox 100% ; dd2 21:51 BP 170 / 77; Pulse 69; Resp 17; Pulse Ox 100% ; dd2 23:02 BP 141 / 73; Pulse 68; Resp 16; Pulse Ox 100% on R/A; jb4 19:13 Body Mass Index 20.12 (49.90 kg, 157.48 cm) me1 19:13 Pain Scale: Adult me1 NIH Stroke Scale Scores: 21:36 NIHSS Score: 0 sp4 [place] Coma Score: 21:56 Eye Response: spontaneous(4). Motor Response: obeys commands(6). Verbal Response: sp4 oriented(5). Total: 15. MDM: 19:10 Medical Screening Exam initiated sp4 21:38 ED course: EXAMINATION: Head Brain Wo Cont CLINICAL INDICATION: Female, 80 years sp4 old.facial numbness TECHNIQUE: Axial CT images from the skull base to the vertex without intravenous contrast. Coronal and sagittal reformatted images were created from the data set. One or more of the following dose reduction techniques were used: Automated exposure control, adjustment of the mA and/or kV according to patient size, and/or iterative reconstruction. Unless otherwise specified, incidental findings do not require dedicated imaging follow-up. [id number]. COMPARISON: 01/21/2025 FINDINGS: INTRACRANIAL: Slightly hyperattenuating structure at the left basal ganglia with some surrounding hypoattenuation demonstrating increased conspicuity from prior. No hydrocephalus. No mass effect or midline shift. Moderate chronic small vessel ischemic changes. VASCULATURE: Intracranial atherosclerotic changes. Left ICA stent. SCALP/SKULL: No calvarial fracture identified. No acute soft tissue abnormality. SINUSES: The visualized paranasal sinuses are mostly clear. No significant mastoid fluid. IMPRESSION: Hyperattenuating structure in the left basal ganglia is not the same attenuation of hemorrhage but is new since 01/21/25. It could represent subacute hemorrhage. Further evaluation with MRI with and without contrast is recommended. . 21:41 ED course: HISTORY: 80 years Female CHEST PAIN COMPARISON: 01/21/2025 FINDINGS: sp4 LUNGS/PLEURA: The lungs are clear. No pleural effusions or pneumothorax. No pulmonary edema. CARDIAC/MEDIASTINUM: The cardiac silhouette is within normal limits. UPPER ABDOMEN: No significant abnormality. BONES: No acute abnormality. LINES/TUBES/OTHER: N/A IMPRESSION: No evidence of acute cardiopulmonary disease. . 22:02 Differential diagnosis: CVA, TIA, Dementia, paralysis, metabolic disorder, drug sp4 effects. TNKase (Tenecteplase) Screening: Contraindications: Other: Subacute left basal ganglia hemorrhage. Data reviewed: vital signs, nurses notes, lab test result(s), EKG, radiologic studies, CT scan, plain films. Consideration of Admission/Observation Escalation of care including admission/observation considered. Management of patient was discussed with the following: Lieutenant Fire Fighter: Family requested transfer to [facility].. ED course: Patient's last admission here 01/05/2025. Patient was admitted for sepsis with viral pneumonia, hypokalemia, fall, protein calorie malnutrition. Additional history includes hypertension, anemia, aneurysm, anxiety, CVA, hemorrhagic stroke, home medications includes Augmentin and Paxlovid.. 23:05 ED course: Accepted by [facility] neuro ICU attending . [facility] 02/23 19:09 Order name: Basic Metabolic Panel; Complete Time: 22:50 [facility] 02/23 19:09 Order name: CBC with Diff; Complete Time: 21:46 [facility] 02/23 19:09 Order name: LFT's; Complete Time: 22:50 [facility] 02/23 19:09 Order name: Magnesium; Complete Time: 22:50 [facility] 02/23 19:09 Order name: NT PRO-BNP; Complete Time: 22:50 [facility] 02/23 19:09 Order name: PT-INR; Complete Time: 21:46 [facility] 02/23 19:09 Order name: Troponin HS; Complete Time: 22:50 [facility] 02/23 19:09 Order name: XRAY Chest (1 view); Complete Time: 21:38 [facility] 02/23 19:10 Order name: CT Head Brain wo Cont; Complete Time: 21:38 [facility] 02/23 19:09 Order name: Cardiac monitoring; Complete Time: 21:29 [facility] 02/23 19:09 Order name: EKG - Nurse/Tech; Complete Time: 21:29 [facility] 02/23 19:09 Order name: IV Saline Lock; Complete Time: 21:29 [facility] 02/23 19:09 Order name: Labs collected and sent; Complete Time: 21:29 [facility] 02/23 19:09 Order name: O2 Per Protocol; Complete Time: 21:29 [facility] 02/23 19:09 Order name: O2 Sat Monitoring; Complete Time: 21:29 sp4 EC:26 Rate is 64 beats/min. Rhythm is regular, Normal Sinus Rhythm. QRS [place] is Normal. [place] sp4 interval is normal. QRS interval is normal. QT interval is normal. No Q waves. T waves are Normal. No ST changes noted. Clinical impression: No evidence of ischemia. Interpreted by me. Reviewed by me. Administered Medications: 21:59 Drug: cloNIDine PO 0.1 mg PO once Route: PO; dd2 23:06 Follow up: Response: (VIS) Vaccine information sheet provided today. Questions and/or jb4 concerns addressed. VIS edition date: May 08, 2021.; Marked relief of symptoms 23:06 Drug: Diazepam PO 2 mg PO once Route: PO; jb4 23:35 Follow up: Response: No adverse reaction jb4 Disposition Summary: 02/23/25 23:05 Transfer Ordered Notes: Transfer Location: [facility] sp4 Reason: Higher level of care sp4 Condition: Stable sp4 Problem: new sp4 Symptoms: have improved sp4 Accepting Physician: [facility] attending Neur(02/23/25 23:36) jb4 Diagnosis - Subacute left basal ganglia hemorrhage, Acute Headache sp4 Forms: - Medication Reconciliation Form sp4 - SBAR form sp4 Critical care time excluding procedures: 23:03 Critical care time: Bedside Care: 36 minutes, Consultation: 12 minutes, Family sp4 Intervention: 12 minutes. Total time: 60 minutes NIH Stroke Scale - NIH Stroke Score Date: 02/23/2025 Time: 21:36 Total Score = 0 10. Dysarthria (speech clarity - read or repeat words) - 0(Normal) 11. Extinction and Inattention (visual/tactile/auditory/spatial/personal) - 0(No abnormality) 1a. Level of Consciousness (LOC) - 0(Alert) 1b. Level of Consciousness (LOC) (Month \T\ Age) - 0(Both) 1c. LOC Commands (Open \T\ Closes Eyes/Corrections Cadet) - 0(Both) 2. Best Gaze (Lateral Gaze Paresis) - 0(Normal) 3. Visual Field Loss - 0(No visual loss) 4. Facial Palsy - 0(Normal) 5a. Left Arm: Motor (10-second hold) - 0(No drift) 5b. Right Arm: Motor (10-second hold) - 0(No drift) 6a. Left Leg: Motor (5-second hold - always test supine) - 0(No drift) 6b. Right Leg: Motor (5-second hold - always test supine) - 0(No drift) 7. Limb Ataxia (finger/nose \T\ heel/mcclure - test with eyes open) - 0(Absent) 8. Sensory Loss (pinprick arms/legs/face) - 0(Normal) 9. Best Language: Aphasia (description/naming/reading) - 0(No aphasia) Initials: sp4 Signatures: Dispatcher [employer] EDJosiah Hernandez, RN RN jb4 Roel Puentes MD MD sp4 Kathy Banda RN RN me1 ROCIO ASCENCIO RN RN dd2 Corrections: (The following items were deleted from the chart) 19:10 19:10 BASIC METABOLIC PANEL+C.LAB.BRZ ordered. EDMS EDMS 19:10 19:10 CBC+H.LAB.BRZ ordered. EDMS EDMS 19:10 19:10 HEPATIC FUNCTION+C.LAB.BRZ ordered. EDMS EDMS 19:10 19:10 MAGNESIUM+C.LAB.BRZ ordered. EDMS EDMS 19:10 19:10 PROBNP+C.LAB.BRZ ordered. EDMS EDMS 19:10 19:10 PROTIME (+INR)+COAG.LAB.BRZ ordered. EDMS EDMS 19:10 19:10 Troponin High Sensitivity+C.LAB.BRZ ordered. EDMS EDMS 19:10 19:10 Chest Single View+RAD.RAD.BRZ ordered. EDMS EDMS 19:10 19:10 Head Brain Wo Cont+CT.RAD.BRZ ordered. EDMS EDMS 23:36 23:05 [facility] attending Neur sp4 jb4
[2025-02-23 23:46] VITALS: TEMP 98.2; O2SAT 100
[2025-02-23 23:50] VITALS: BP 141/73
--- NOTE | 2025-02-26 12:24 | EKG ---
Test Date: 2025-02-23 Test Time: 21:26:16 Joint Finisher: MEASUREMENT RESULTS: Intervals: Rate: 64 MN: 150 QRSD: 74 QT: 424 QTc: 437 Shanks: P: 33 MN: 150 QRS: 36 T: 77 INTERPRETIVE STATEMENTS: Normal sinus rhythm Cannot rule out Anterior infarct, age undetermined Abnormal ECG Compared to ECG 01/21/2025 18:27:36 No significant changes Electronically Signed On 02-26-25 12:20:08 CDT by Esequiel Cornelius
== END 2025-02-23 23:36 | disposition short-term general hospital (02) ==
LOC: ER 18:48
DX: I61.0 Nontraumatic intracerebral hemorrhage in hemisphere, subcortical (principal); I10 Essential (primary) hypertension; Z86.73 Personal history of transient ischemic attack (TIA), and cerebral infarction without residual deficits
CPT/HCPCS: 36415; 70450; 71045; 80048; 80076; 83735; 83880; 84484; 85025; 85610; 93005; 99285